=== PATIENT | female | born 1940 | race Caucasian/White ===

== ENCOUNTER 2021-04-16 14:47 | Emergency (ER) | payer MEDICARE, OTHER ==
[2021-04-16 15:07] VITALS: BP 114/72; PULSE 58; RESP 18; TEMP 98.2
[2021-04-16 15:58] LABS: Basophils # (A) 0.1 k/uL (0-0.2); Basophils % (A) 1 %; Eosinophils # (A) 0.2 k/uL (0-0.7); Eosinophils % (A) 3 %; HCT 41.4 % (34.0-46.0); HGB 13.7 gm/dL (11.4-16.0); Lymphocytes # (A) 1.3 k/uL (1.0-4.8); Lymphocytes % (A) 21 %; MCHC 33.2 g/dL (31.0-37.0); MCV 90.6 fL (80.0-100.0); Mean Platelet Volume 7.8; Monocytes # (A) 0.3 k/uL (0-1.0); Monocytes % (A) 5 %; Neutrophils # (A) 4.6 k/uL (1.3-7.7); Neutrophils % (A) 70 %; Platelet Count 345 k/uL (150-450); RBC 4.57 m/uL (3.80-5.40); RDW 13.3 % (11.5-15.5); WBC 6.5 k/uL (3.8-10.6)
[2021-04-16 16:06] LABS: Calcium 9.6 mg/dL (8.4-10.2); Potassium 4.2 mmol/L (3.5-5.1)
[2021-04-16 16:08] LABS: INR 0.9 (<1.2); Partial Thromboplastin Time 22.2 sec (22.0-30.0)
--- NOTE | 2021-04-16 16:13 | CT ---
EXAMINATION TYPE: CT brain bj guillen DATE OF EXAM: 04/16/2021 COMPARISON: NONE HISTORY: Fall injury with chest and neck pain. CT DLP: 1364.3 mGycm. Automated Exposure Control for Dose Reduction was Utilized. TECHNIQUE: CT scan of the head and cervical spine are performed without contrast. FINDINGS: There is no acute intracranial hemorrhage or midline shift identified. Mild to moderate v entricular and sulcal prominence. Moderate low attenuation in the periventricular white matter. The globes are intact and the visualized sinuses are clear. The calvarium is intact. Cervical spine is visualized in its entirety from C1 through upper thoracic levels and demonstrates l evoconvex scoliosis centered upper to mid thoracic spine without evidence of acute fracture or disloc ation. Slight grade 1 retrolisthesis C4 on C5 and C5 on C6. Prevertebral soft tissue appears within n ormal limits. The C1-C2 articulation is within normal limits on the coronal images. Vertebral body h eights are maintained. Sjif-ga-uteknpfo disc space narrowing and spurring at these levels is present. Lung apices show mild to moderate pleural/parenchymal scarring. Dual-lead pacemaker is partially jami ged. Mild calcified plaque left carotid bulb level. IMPRESSION: 1. There is no acute fracture or dislocation evident in the cervical spine. 2. No acute intracranial hemorrhage or midline shift is seen.
--- NOTE | 2021-04-16 16:14 | XR ---
EXAMINATION TYPE: XR chest 1V DATE OF EXAM: 04/16/2021 COMPARISON: NONE HISTORY: Fall injury with chest pain TECHNIQUE: Single frontal view of the chest is obtained. FINDINGS: There is chronic parenchymal change without suspicious focal air space opacity, pleural ef fusion, or pneumothorax seen. The cardiac silhouette size is enlarged with dual lead pacemaker. Non specific thickening of the right paratracheal stripe. Findings could reflect products of goiter. Othe r etiologies not excluded. Correlation with old outside x-ray would be beneficial. The osseous struct ures are intact. IMPRESSION: Cardiomegaly without acute pulmonary process.
--- NOTE | 2021-04-16 16:21 | ED ---
General Adult HPI - General Chief complaint: Fall Stated complaint: Fall Time Seen by Provider: 04/16/21 15:00 Source: patient Mode of arrival: ambulatory Limitations: no limitations - History of Present Illness Initial comments: Dictation was produced using [employer] dictation software. please excuse any grammatical, word or spelling errors. Chief Complaint: 81-year-old female presents after fall. History of Present Illness: Patient is an 81-year-old female she fell. She hurt her right hand and her left knee. Patient also states that she hit her head. She states she fell she lost her balance from a standing position. She was trying to show off to a friend on how she wakes up milk crates and adri of hay. While trying to demonstrate that she fell in front of her friend. Denies any loss of consciousness. Patient takes Plavix. She does not take any other anticoagulation medications. The ROS documented in this emergency department record has been reviewed and confirmed by me. Those systems with pertinent positive or negative responses have been documented in the HPI. All other systems are other negative and/or n oncontributory. PHYSICAL EXAM: General Impression: Alert and oriented x3, not in acute distress HEENT: Small hematoma over the right forehead measuring 2 x 2 centimeters, extra-ocular movements intact, pupils equal and reactive to light bilaterally, mucous membranes moist. Cardiovascular: Heart regular rate and rhythm Chest: Able to complete full sentences, no retractions, no tachypnea Abdomen: abdomen soft, non-tender, non-distended, no organomegaly Musculoskeletal: Pulses present and equal in all extremities, no peripheral edema, ecchymoses to the medial dorsal right hand and medial left knee Motor: no focal deficits noted Neurological: CN II-XII grossly intact, no focal motor or sensory deficits noted Skin: Intact with no visualized rashes Psych: Normal affect and mood ED course: 81-year-old female presents after fall. She lost her balance trying to demonstrate a bodily maneuver to her friend. Vital signs upon arrival are within acceptable limits. Patient's well-appearing at bedside. She has no physical exam findings of significant traumatic injuries. Laboratory evaluation obtained. CBC, coag panel, metabolic panel is unremarkable. Computed tomography scan of the head and C-spine shows no acute processes. Chest x-ray is nonacute for traumatic injuries, pelvis x-rays nonacute for traumatic injuries. Knee x-ray and had a negative. Clinical presentation consistent with head contusion, left knee contusion and right hand contusion.. Patient reverted bedside at [facility]. [facility] stable medical condition. Patient be discharged. EKG interpretation: Ventricular rate 63, sinus rhythm,. Interval 362, QRS 90, QTc 444. No CT prolongation, no QTC prolongation, no ST or T-wave changes noted. Overall, this EKG is unremarkable - Related Data Home Medications Medication Instructions Recorded Confirmed Acetaminophen Tab [Tylenol] 650 mg PO Q6H PRN 04/16/21 04/16/21 Aspirin EC [Ecotrin Low Dose] 81 mg PO DAILY@0700 04/16/21 04/16/21 Atorvastatin Calcium [Lipitor] 40 mg PO DAILY@0700 04/16/21 04/16/21 Clopidogrel [Plavix] 75 mg PO DAILY@0700 04/16/21 04/16/21 Furosemide [Lasix] 20 mg PO DAILY@0700 04/16/21 04/16/21 Isosorbide Mononitrate ER [Imdur] 30 mg PO DAILY@0700 04/16/21 04/16/21 Metoprolol Cruz/Hydrochlorothiaz 1 tab PO BID@0700,1600 04/16/21 04/16/21 [Dutoprol 25-12.5 mg Tablet] Omeprazole [PriLOSEC] 20 mg PO DAILY@0700 04/16/21 04/16/21 Potassium Chloride ER [K-Dur 20] 20 meq PO DAILY@0700 04/16/21 04/16/21 Sertraline HCl [Zoloft] 50 mg PO DAILY@0700 04/16/21 04/16/21 Sucralfate [Carafate] 1 gm PO ACHS 04/16/21 04/16/21 Allergies Allergy/AdvReac Type Severity Reaction Status Date / Time bee venom protein (honey bee) Allergy Rash/Hives Verified 04/16/21 15:57 Penicillins Allergy Rash/Hives Verified 04/16/21 15:57 vitamin b 12 Allergy Anaphylaxis Uncoded 04/16/21 15:09 Review of Systems ROS Statement: Those systems with pertinent positive or pertinent negative responses have been documented in the HPI. ROS Other: All systems not noted in ROS Statement are negative. Past Medical History Past Medical History: Heart Failure, GERD/Reflux, Hyperlipidemia, Hypertension Additional Past Medical History / Comment(s): weakness History of Any Multi-Drug Resistant Organisms: None Reported Past Surgical History: Pacemaker Past Psychological History: Depression Smoking Status: Never smoker Past Alcohol Use History: None Reported Past Drug Use History: None Reported General Exam Limitations: no limitations Course Vital Signs 04/16/21 15:02 Temperature 98.2 F Pulse Rate 58 L Respiratory 18 Rate Blood Pressure 114/72 O2 Sat by Pulse 94 L Oximetry Medical Decision Making - Lab Data Result diagrams: 04/16/21 15:46 04/16/21 15:46 Lab Results 04/16/21 04/16/21 04/16/21 Range/Units 15:46 15:46 15:46 WBC 6.5 (3.8-10.6) k/uL RBC 4.57 (3.80-5.40) m/uL Hgb 13.7 (11.4-16.0) gm/dL Hct 41.4 (34.0-46.0) % MCV 90.6 (80.0-100.0) fL MCH 30.0 (25.0-35.0) pg MCHC 33.2 (31.0-37.0) g/dL RDW 13.3 (11.5-15.5) % Plt Count 345 (150-450) k/uL MPV 7.8 Neutrophils % 70 % Lymphocytes % 21 % Monocytes % 5 % Eosinophils % 3 % Basophils % 1 % Neutrophils # 4.6 (1.3-7.7) k/uL Lymphocytes # 1.3 (1.0-4.8) k/uL Monocytes # 0.3 (0-1.0) k/uL Eosinophils # 0.2 (0-0.7) k/uL Basophils # 0.1 (0-0.2) k/uL PT 10.0 (9.0-12.0) sec INR 0.9 (<1.2) APTT 22.2 (22.0-30.0) sec Sodium (137-145) mmol/L Potassium (3.5-5.1) mmol/L Chloride (98-107) mmol/L Carbon Dioxide (22-30) mmol/L Anion Gap mmol/L BUN (7-17) mg/dL Creatinine (0.52-1.04) mg/dL Est GFR (CKD-EPI)AfAm (>60 ml/min/1.73 sqM) Est GFR (CKD-EPI)NonAf (>60 ml/min/1.73 sqM) Glucose (74-99) mg/dL Calcium (8.4-10.2) mg/dL Blood Type A Positive Blood Type Recheck No Previous Record Bld Type Recheck Status CABO Indicated Antibody Screen NEGATIVE Spec Expiration Date 04/19/2021 - 234504/16/21 Range/Units 15:46 WBC (3.8-10.6) k/uL RBC (3.80-5.40) m/uL Hgb (11.4-16.0) gm/dL Hct (34.0-46.0) % MCV (80.0-100.0) fL MCH (25.0-35.0) pg MCHC (31.0-37.0) g/dL RDW (11.5-15.5) % Plt Count (150-450) k/uL MPV Neutrophils % % Lymphocytes % % Monocytes % % Eosinophils % % Basophils % % Neutrophils # (1.3-7.7) k/uL Lymphocytes # (1.0-4.8) k/uL Monocytes # (0-1.0) k/uL Eosinophils # (0-0.7) k/uL Basophils # (0-0.2) k/uL PT (9.0-12.0) sec INR (<1.2) APTT (22.0-30.0) sec Sodium 139 (137-145) mmol/L Potassium 4.2 (3.5-5.1) mmol/L Chloride 108 H (98-107) mmol/L Carbon Dioxide 23 (22-30) mmol/L Anion Gap 8 mmol/L BUN 22 H (7-17) mg/dL Creatinine 0.83 (0.52-1.04) mg/dL Est GFR (CKD-EPI)AfAm 77 (>60 ml/min/1.73 sqM) Est GFR (CKD-EPI)NonAf 67 (>60 ml/min/1.73 sqM) Glucose 97 (74-99) mg/dL Calcium 9.6 (8.4-10.2) mg/dL Blood Type Blood Type Recheck Bld Type Recheck Status Antibody Screen Spec Expiration Date Disposition Clinical Impression: Fall Disposition: HOME SELF-CARE Condition: Good Instructions (If sedation given, give patient instructions): Fall Prevention for Older Adults (ED) Is patient prescribed a controlled substance at d/c from ED?: No Referrals: Ian Castaneda MD [Primary Care Provider] - 1-2 days
--- NOTE | 2021-04-16 16:37 | XR ---
EXAMINATION TYPE: XR pelvis AP view DATE OF EXAM: 04/16/2021 CLINICAL HISTORY: Fall injury with pain TECHNIQUE: A single AP view of the pelvis is obtained. COMPARISON: None. FINDINGS: Osseous structures are demineralized which is noted to lower radiographic sensitivity. The re is no acute displaced fracture evident in the pelvis. Pubic symphysis is narrowed with sclerosis. [id number]-cl-[id number] superior joint space loss in both hips left greater than right. Postsurgical change of left proximal femur partially imaged. Sacroiliac joints are maintained. The overlying soft tissue appears unremarkable. IMPRESSION: There is no acute fracture or dislocation in the pelvis.
--- NOTE | 2021-04-16 17:09 | XR ---
PROCEDURE: XR knee 4V LT - 3V DATE AND TIME: 04/16/2021 5:05 PM CLINICAL INDICATION: Pain/fall TECHNIQUE: Department protocol COMPARISON: None FINDINGS: There is no fracture or malalignment. The soft tissues are unremarkable. IMPRESSION: NO ACUTE PROCESS.
--- NOTE | 2021-04-16 17:11 | XR ---
PROCEDURE: XR hand complete RT - 3V DATE AND TIME: 04/16/2021 5:05 PM CLINICAL INDICATION: Pain/fall TECHNIQUE: Department protocol COMPARISON: None FINDINGS: There is no fracture or malalignment. Scattered multifocal moderate osteoarthrosis changes noted. The soft tissues are unremarkable. IMPRESSION: NO ACUTE PROCESS.
== END 2021-04-16 18:25 | disposition home or self-care (01) ==
LOC: EC 14:47 → EEVIPCON 14:47 → EC 18:25
DX: S60.221A Contusion of right hand, initial encounter (principal); S80.02XA Contusion of left knee, initial encounter; S00.83XA Contusion of other part of head, initial encounter; I11.0 Hypertensive heart disease with heart failure; I50.9 Heart failure, unspecified; E78.5 Hyperlipidemia, unspecified; K21.9 Gastro-esophageal reflux disease without esophagitis; F32.9 Major depressive disorder, single episode, unspecified; Z79.02 Long term (current) use of antithrombotics/antiplatelets; Z79.82 Long term (current) use of aspirin; Z79.899 Other long term (current) drug therapy; Z88.0 Allergy status to penicillin; Z95.0 Presence of cardiac pacemaker; W01.0XXA Fall on same level from slipping, tripping and stumbling without subsequent striking against object, initial encounter
CPT/HCPCS: 36415; 70450; 71045; 72125; 72170; 80048; 85025; 85610; 85730; 86850; 86900; 86901; 93005; 99285

== ENCOUNTER 2022-08-31 09:22 | Day surgery (SDC) | payer MEDICARE, OTHER ==
[2022-08-26 12:23] VITALS: BMI 31.8
[~2022-08-31 09:22] MED LIST: LACTATED RINGERS 1,000 ML IV SCH
[2022-08-31 10:01] VITALS: RESP 16; TEMP 97.3
[2022-08-31] MEDS ORDERED: PROPOFOL 10 MG/ML 20 ML VIAL IV ONE (10:09)
[2022-08-31] MEDS ORDERED: LIDOCAINE 2% INJ 20 MG/ML (2 ML VIAL) ONE (10:09)
[2022-08-31] MEDS ORDERED: IV FLUID CONTINUATION 700 ML IV ONE (10:18)
--- NOTE | 2022-08-31 10:19 | P.PCN ---
Date of Procedure: 08/31/22 Procedure(s) Performed: BRIEF HISTORY: Patient is a 82-year-old, pleasant, white female scheduled for an upper endoscopy as a part of evaluation of long-standing history of GERD and intermittent episodes of nausea vomiting has been progressively getting worse for the last few weeks duration. She has been on omeprazole 20 mg daily the past with no help. He was recently changed to Prevacid 30 mg daily and she is been doing much better. She is scheduled for an upper endoscopy to rule out complicated reflux disease.. PROCEDURE PERFORMED: Esophagogastroduodenoscopy with biopsy. PREOPERATIVE DIAGNOSIS: History of GERD with intermittent nausea vomiting. IV sedation per anesthesia. PROCEDURE: After informed consent was obtained, the patient was brought into the endoscopy unit. IV sedation was administered by Anesthesia under continuous monitoring. Initially the Olympus GIF-140 video endoscope was inserted into the mouth. Esophagus intubated without any difficulty. It was gradually advanced into the stomach and duodenum and carefully examined. The bulb and the second part of the duodenum appeared normal. The scope at this time was withdrawn to the stomach, adequately insufflated with air, and upon careful examination, mucosa of the antrum, had mild gastritis and biopsies were done from this area. Mucosa body, cardia and the fundus appeared normal. The scope was then withdrawn into the esophagus. The GE junction was located at 32 cm from the incisors. Large hiatal hernia noted. The esophagus appeared normal. There were no erosions or ulcerations seen and the patient tolerated the procedure well. IMPRESSION: 1. Large hiatal hernia. 2. No evidence of esophagitis or Mitchell's esophagus 3. Mild antral gastritis. RECOMMENDATIONS: The findings of this examination were discussed with the patient as well his family. She was advised to continue with Prevacid 30 mg daily and follow antireflux measures. Recommend small frequent meals and she will follow up in office in 4-6 weeks..
[2022-08-31 10:20] VITALS: PULSE 60
[2022-08-31 10:35] VITALS: BP 110/65
== END 2022-08-31 11:02 | disposition home or self-care (01) ==
LOC: ORWHC2ENDO 09:22 → EEVIPCON 10:15 → ORWHC2ENDO 11:02
PROVIDERS: ATTEND Internal Medicine Gastroenterology
DX: K29.50 Unspecified chronic gastritis without bleeding (principal); K21.9 Gastro-esophageal reflux disease without esophagitis; K44.9 Diaphragmatic hernia without obstruction or gangrene; I10 Essential (primary) hypertension; E78.5 Hyperlipidemia, unspecified; F32.A Depression, unspecified; Z79.899 Other long term (current) drug therapy; Z88.0 Allergy status to penicillin
CPT/HCPCS: 88305; 43239; J2704; J2001

== ENCOUNTER 2023-01-08 14:33 | Emergency (ER) | payer MEDICARE, OTHER ==
--- NOTE | 2023-01-08 15:20 | ED ---
General Adult HPI - General Chief complaint: Fall Stated complaint: Fall Time Seen by Provider: 01/08/23 14:39 Source: patient, EMS, RN notes reviewed Mode of arrival: ambulatory Limitations: no limitations - History of Present Illness Initial comments: 82-year-old female presents to the emergency department with chief complaint of fall out of bed last night. She was evaluated by a physician at [facility] who wanted her to come in to be evaluated. Patient is feeling well. Denies headache, loss of consciousness. She reports that she is on Plavix but no other blood thinners. - Related Data Home Medications Medication Instructions Recorded Confirmed Acetaminophen Tab [Tylenol] 650 mg PO Q6H PRN 04/16/21 08/26/22 Aspirin EC [Ecotrin Low Dose] 81 mg PO DAILY 04/16/21 08/30/22 Atorvastatin Calcium [Lipitor] 40 mg PO DAILY 04/16/21 08/26/22 Clopidogrel [Plavix] 75 mg PO DAILY 04/16/21 08/30/22 Furosemide [Lasix] 20 mg PO DAILY 04/16/21 08/26/22 Isosorbide Mononitrate ER [Imdur] 30 mg PO DAILY 04/16/21 08/26/22 Potassium Chloride ER [K-Dur 20] 20 meq PO DAILY 04/16/21 08/26/22 Sertraline HCl [Zoloft] 50 mg PO DAILY 04/16/21 08/26/22 Acetaminophen [Tylenol 8 Hour] 650 mg PO TID 08/26/22 08/26/22 Lansoprazole [Prevacid 24Hr] 15 mg PO DAILY 08/26/22 08/26/22 Metoprolol Tartrate [Lopressor] 12.5 mg PO BID 08/26/22 08/26/22 hydroCHLOROthiazide 12.5 mg PO DAILY 08/26/22 08/26/22 Allergies Allergy/AdvReac Type Severity Reaction Status Date / Time bee venom protein (honey bee) Allergy Rash/Hives Verified 01/08/23 14:46 Penicillins Allergy Rash/Hives Verified 01/08/23 14:46 vitamin b 12 Allergy Anaphylaxis Uncoded 01/08/23 14:46 Review of Systems ROS Statement: Those systems with pertinent positive or pertinent negative responses have been documented in the HPI. ROS Other: All systems not noted in ROS Statement are negative. Past Medical History Past Medical History: Heart Failure, CVA/TIA, GERD/Reflux, Hyperlipidemia, Hypertension Additional Past Medical History / Comment(s): weakness History of Any Multi-Drug Resistant Organisms: None Reported Past Surgical History: Pacemaker Past Anesthesia/Blood Transfusion Reactions: No Reported Reaction Additional Past Anesthesia/Blood Transfusion Reaction / Comment(s): PER [facility] STAFF Type of Cardiac Device: Unknown Device Placement Date:: UNK Past Psychological History: Depression Smoking Status: Former smoker Past Alcohol Use History: Rare Past Drug Use History: None Reported General Exam Limitations: no limitations General appearance: alert, in no apparent distress Head exam: Present: atraumatic, normocephalic, normal inspection Eye exam: Present: PERRL, EOMI, other. Absent: scleral icterus, conjunctival injection, periorbital swelling ENT exam: Present: normal exam, mucous membranes moist Neck exam: Present: normal inspection. Absent: tenderness, meningismus, lymphadenopathy Respiratory exam: Present: normal lung sounds bilaterally. Absent: respiratory distress, wheezes, rales, rhonchi, stridor Cardiovascular Exam: Present: regular rate, normal rhythm, normal heart sounds. Absent: systolic murmur, diastolic murmur, rubs, gallop, clicks GI/Abdominal exam: Present: soft, normal bowel sounds. Absent: distended, tenderness, guarding, rebound, rigid Extremities exam: Present: normal inspection, full ROM, normal capillary refill. Absent: tenderness, pedal edema, joint swelling, calf tenderness Back exam: Present: normal inspection Neurological exam: Present: alert, oriented X3, CN II-XII intact Psychiatric exam: Present: normal affect, normal mood Skin exam: Present: warm, dry, intact, normal color. Absent: rash Course Vital Signs 01/08/23 01/08/23 01/08/23 14:39 15:00 15:30 Temperature 97.9 F Pulse Rate 66 68 Respiratory 20 Rate Blood Pressure 99/66 99/66 108/60 O2 Sat by Pulse 95 95 94 L Oximetry 01/08/23 01/08/23 01/08/23 16:00 16:30 20:32 Temperature 98.7 F Pulse Rate 70 67 68 Respiratory 18 18 Rate Blood Pressure 109/66 103/60 105/68 O2 Sat by Pulse 92 L 91 L 96 Oximetry Medical Decision Making - Medical Decision Making Was pt. sent in by a medical professional or institution (Dr., PA, FOOD EQUIPMENT SERVICE TECHNICIAN, urgent care, hospital, or shelter...) When possible be specific @ -patient sent in by [facility] physician Did you speak to anyone other than the patient for history (EMS, parent, family, police, friend...)? What history was obtained from this source @ -No Did you review nursing and triage notes (agree or disagree)? Why? @ -I reviewed and agree with nursing and triage notes Were old charts reviewed (outside hosp., previous admission, EMS record, old EKG, old radiological studies, urgent care reports/EKG's, shelter records)? Report findings @ -No old charts were reviewed Differential Diagnosis (chest pain, altered mental status, abdominal pain women, abdominal pain men, vaginal bleeding, weakness, fever, dyspnea, syncope, headache, dizziness, GI bleed, back pain, seizure, CVA, palpatations, mental health, musculoskeletal)? @ -Differential Musculoskeletal Muscular strain, contusion, ligament sprain, fracture, arthritis, septic arthritis, bursitis, cellulitis, muscle spasm, nerve compression, DVT, arterial occlusion, herpes zoster, electrolyte abnormality, tumor.... This is not meant to be in all inclusive list EKG interpreted by me (3pts min.). @ -none X-rays interpreted by me (1pt min.). @ -None done CT interpreted by me (1pt min.). @ -CT brain and C-spine shows no evidence of acute intracranial hemorrhage or C-spine fracture U/S interpreted by me (1pt. min.). @ -None done What testing was considered but not performed or refused? (CT, X-rays, U/S, labs)? Why? @ -None What meds were considered but not given or refused? Why? @ -None Did you discuss the management of the patient with other professionals (professionals i.e. EDWAR Dodson, FOOD EQUIPMENT SERVICE TECHNICIAN, lab, RT, psych nurse, social secretary, director of district office, teacher, home school liaison officer, patient case coordinator)? Give summary @ -No Was smoking cessation discussed for >3mins.? @ -No Was critical care preformed (if so, how long)? @ -No Were there social determinants of health that impacted care today? How? (Homelessness, low income, unemployed, alcoholism, drug addiction, transportation, low edu. Level, literacy, decrease access to med. care, [facility], rehab)? @ -No Was there de-escalation of care discussed even if they declined (Discuss DNR or withdrawal of care, Hospice)? DNR status @ -No What co-morbidities impacted this encounter? (DM, HTN, Smoking, COPD, CAD, Cancer, CVA, ARF, Chemo, Hep., AIDS, mental health diagnosis, sleep apnea, morbid obesity)? @ -None Was patient admitted / discharged? Hospital course, mention meds given and route, prescriptions, significant lab abnormalities, going to OR and other pertinent info. @ -Discharged. Patient presented to emergency department chief complaint of fall in which she hit her head on the ground. She was sent in by her [facility] physician. CT brain shows no evidence of acute intracranial hemorrhage. Patient is mentating at her baseline, denies headache, vomiting. Patient stable for [facility]. Case discussed with my attending, Dr. Orozco Undiagnosed new problem with uncertain prognosis? @ -No Drug Therapy requiring intensive monitoring for toxicity (Heparin, Nitro, Ins ulin, Cardizem)? @ -No Were any procedures done? @ -No Diagnosis/symptom? @ -fall Acute, or Chronic, or Acute on Chronic? @ -acute Uncomplicated (without systemic symptoms) or Complicated (systemic symptoms)? @ -uncomplicated Side effects of treatment? @ -No Exacerbation, Progression, or Severe Exacerbation? @ -No Poses a threat to life or bodily function? How? (Chest pain, USA, NH, pneumonia, PE, COPD, DKA, ARF, appy, cholecystitis, CVA, Diverticulitis, Homicidal, Suicidal, threat to staff... and all critical care pts) @ -No Disposition Clinical Impression: Fall Disposition: HOME SELF-CARE Condition: Stable Instructions (If sedation given, give patient instructions): Fall Prevention for Older Adults (ED) Additional Instructions: Please return to the emergency department for new or worsening symptoms. Is patient prescribed a controlled substance at d/c from ED?: No Referrals: Karin Marin DO [REFERRING] - 1-2 days Time of Disposition: 16:43
--- NOTE | 2023-01-08 16:15 | CT ---
EXAMINATION TYPE: CT brain bj chavarria con DATE OF EXAM: 01/08/2023 COMPARISON: None HISTORY: pain after fall CT DLP: 1412.8 mGycm, Automated exposure control for dose reduction was used. CONTRAST: Patient injected with 0 mL of Isovue 300. CT of the brain is performed utilizing 3 mm thick sections through the posterior fossa and 3 mm thick sections through the remaining calvarium. Study is performed within 24 hours of arrival to the hospital. No abnormal hyperdensity is present to suggest an acute intracranial hemorrhage. No mass lesion is evident. No acute infarcts are evident. Chronic appearing periventricular white matter ischemic type changes are present, unchanged from comparison. Ventricles and sulci are appropriate for the patient age. Paranasal sinuses and mastoid air cells within the [id number] are clear. IMPRESSIONS: 1. Atrophy with chronic appearing periventricular white matter ischemic type changes. CT cervical spine. COMPARISON: None CT of the cervical spine is performed in the axial plane at 2 mm thick sections. Reconstructed image s in the coronal, and sagittal plane are reviewed on the computer. No acute fractures are evident. Vertebral body alignment is normal. Disc space narrowing is present C4-5 C5-C6 C6-7. Prevertebral space appears normal. Vertebral body heights are preserved. No spinal canal stenosis is evident. Uncovertebral joint hypertrophy has severe bilateral foraminal stenosis C4-5. Severe left foraminal s tenosis from uncovertebral joint hypertrophy is present C5-6. Note is made of some thickening in the lung apices within the [id number]. IMPRESSIONS: 1. Degenerative disc change and foraminal stenosis mid cervical spine discussed above. 2. No acute osseous abnormality cervical spine.
[2023-01-08 16:36] VITALS: RESP 18
[2023-01-08 20:34] VITALS: BP 105/68; PULSE 68; TEMP 98.7
== END 2023-01-08 20:32 | disposition home or self-care (01) ==
LOC: EC 14:33
DX: S09.90XA Unspecified injury of head, initial encounter (principal); I11.0 Hypertensive heart disease with heart failure; I50.9 Heart failure, unspecified; E78.5 Hyperlipidemia, unspecified; F32.A Depression, unspecified; Z79.82 Long term (current) use of aspirin; Z79.02 Long term (current) use of antithrombotics/antiplatelets; Z79.899 Other long term (current) drug therapy; Z88.8 Allergy status to other drugs, medicaments and biological substances; Z91.030 Bee allergy status; Z88.0 Allergy status to penicillin; Z87.891 Personal history of nicotine dependence; Z86.73 Personal history of transient ischemic attack (TIA), and cerebral infarction without residual deficits; W06.XXXA Fall from bed, initial encounter
CPT/HCPCS: 70450; 72125; 99284

== ENCOUNTER 2023-04-22 22:49 | Inpatient (IN) | payer MEDICARE, OTHER ==
[2023-04-22 23:42] LABS: Basophils % (A) 0 %; Eosinophils # (A) 0.5 k/uL (0-0.7); Eosinophils % (A) 7 %; Hypochromasia Marked; Lymphocytes # (A) 1.4 k/uL (1.0-4.8); Lymphocytes % (A) 20 %; MCH 18.7 pg (25.0-35.0); MCHC 28.3 g/dL (31.0-37.0); MCV 66.2 fL (80.0-100.0); Mean Platelet Volume 6.8; Microcytosis Marked; Monocytes # (A) 0.4 k/uL (0-1.0); Monocytes % (A) 5 %; Neutrophils # (A) 4.7 k/uL (1.3-7.7); Neutrophils % (A) 66 %; Platelet Count 526 k/uL (150-450); Poikilocytosis Slight; RBC 2.94 m/uL (3.80-5.40); RDW 15.8 % (11.5-15.5); WBC 7.2 k/uL (3.8-10.6)
[2023-04-22 23:47] LABS: HCT 19.5 % (34.0-46.0); HGB 5.5 gm/dL (11.4-16.0)
[2023-04-22 23:54] LABS: Prothrombin Time 10.5 sec (10.0-12.5)
[2023-04-22 23:56] LABS: Partial Thromboplastin Time 19.3 sec (22.0-30.0)
[2023-04-23 00:01] LABS: ALT 12 U/L (4-34); AST 16 U/L (14-36); African American GFR (CKD) >90 (>60 ml/min/1.73 sqM); Albumin 3.5 g/dL (3.5-5.0); Alkaline Phosphatase 109 U/L (38-126); Anion Gap 11 mmol/L; Blood Urea Nitrogen 13 mg/dL (7-17); Calcium 8.8 mg/dL (8.4-10.2); Carbon Dioxide 25 mmol/L (22-30); Chloride 103 mmol/L (98-107); Glucose 130 mg/dL (74-99); Magnesium 1.7 mg/dL (1.6-2.3); Non-African American GFR(CKD) 79 (>60 ml/min/1.73 sqM); Potassium 3.8 mmol/L (3.5-5.1); Sodium 139 mmol/L (137-145); Total Bilirubin 0.3 mg/dL (0.2-1.3); Total Protein 6.5 g/dL (6.3-8.2)
[2023-04-23] MEDS ORDERED: NALOXONE 0.4 MG/ML 1 ML VIAL IV PRN (00:51)
--- NOTE | 2023-04-23 00:51 | ED ---
General Adult HPI - General Chief complaint: Recheck/Abnormal Lab/Rx Stated complaint: Low Hemoglobin Time Seen by Provider: 04/22/23 22:55 Source: EMS Mode of arrival: EMS - History of Present Illness Initial comments: 83 year old female presents from [facility] for low hemoglobin. Patient reports that she had routine laboratory studies conducted found to have a low he moglobin. It was reportedly 4.8. She was complaining of some lightheadedness. She denies history of anemia but does admit that she had previous blood transfusion in the very remote past. She denies any recent blood loss. States that she will intermittently have some dark stools however nothing recently. She does not take an iron supplementation. She denies any abdominal pain. Patient takes Plavix. No other alleviating, precipitating or modifying factors - Related Data Home Medications Medication Instructions Recorded Confirmed Acetaminophen Tab [Tylenol] 650 mg PO Q6H PRN 04/16/21 08/26/22 Aspirin EC [Ecotrin Low Dose] 81 mg PO DAILY 04/16/21 08/30/22 Atorvastatin Calcium [Lipitor] 40 mg PO DAILY 04/16/21 08/26/22 Clopidogrel [Plavix] 75 mg PO DAILY 04/16/21 08/30/22 Furosemide [Lasix] 20 mg PO DAILY 04/16/21 08/26/22 Isosorbide Mononitrate ER [Imdur] 30 mg PO DAILY 04/16/21 08/26/22 Potassium Chloride ER [K-Dur 20] 20 meq PO DAILY 04/16/21 08/26/22 Sertraline HCl [Zoloft] 50 mg PO DAILY 04/16/21 08/26/22 Acetaminophen [Tylenol 8 Hour] 650 mg PO TID 08/26/22 08/26/22 Lansoprazole [Prevacid 24Hr] 15 mg PO DAILY 08/26/22 08/26/22 Metoprolol Tartrate [Lopressor] 12.5 mg PO BID 08/26/22 08/26/22 hydroCHLOROthiazide 12.5 mg PO DAILY 08/26/22 08/26/22 Allergies Allergy/AdvReac Type Severity Reaction Status Date / Time bee venom protein (honey bee) Allergy Rash/Hives Verified 04/22/23 22:57 Penicillins Allergy Rash/Hives Verified 04/22/23 22:57 vitamin b 12 Allergy Anaphylaxis Uncoded 04/22/23 22:57 Review of Systems ROS Statement: Those systems with pertinent positive or pertinent negative responses have been documented in the HPI. ROS Other: All systems not noted in ROS Statement are negative. Past Medical History Past Medical History: Heart Failure, CVA/TIA, GERD/Reflux, Hyperlipidemia, Hypertension Additional Past Medical History / Comment(s): weakness History of Any Multi-Drug Resistant Organisms: None Reported Past Surgical History: Pacemaker Past Anesthesia/Blood Transfusion Reactions: No Reported Reaction Additional Past Anesthesia/Blood Transfusion Reaction / Comment(s): PER [facility] STAFF Type of Cardiac Device: Unknown Device Placement Date:: UNK Past Psychological History: Depression Smoking Status: Former smoker Past Alcohol Use History: Rare Past Drug Use History: None Reported General Exam General appearance: alert, in no apparent distress Head exam: Present: atraumatic, normocephalic, normal inspection Eye exam: Present: normal appearance, PERRL, EOMI. Absent: scleral icterus, conjunctival injection, periorbital swelling ENT exam: Present: normal exam, mucous membranes moist Neck exam: Present: normal inspection. Absent: tenderness, meningismus, lymphadenopathy Respiratory exam: Present: normal lung sounds bilaterally. Absent: respiratory distress, wheezes, rales, rhonchi, stridor Cardiovascular Exam: Present: regular rate, normal rhythm, normal heart sounds. Absent: systolic murmur, diastolic murmur, rubs, gallop, clicks GI/Abdominal exam: Present: soft, normal bowel sounds. Absent: distended, tenderness, guarding, rebound, rigid Rectal exam: Present: normal rectal tone, heme (-) stool. Absent: black stool, bloody stool Extremities exam: Present: normal inspection, full ROM, normal capillary refill. Absent: tenderness, pedal edema, joint swelling, calf tenderness Back exam: Present: normal inspection Neurological exam: Present: alert, oriented X3, CN II-XII intact Psychiatric exam: Present: normal affect, normal mood Skin exam: Present: warm, dry, intact, normal color. Absent: rash Course Vital Signs 04/22/23 04/23/23 04/23/23 22:51 00:00 02:00 Temperature 100.2 F H 98.7 F 98.5 F Pulse Rate 68 63 66 Respiratory 18 16 18 Rate Blood Pressure 119/72 118/51 133/57 O2 Sat by Pulse 98 95 96 Oximetry 04/23/23 04/23/23 04/23/23 02:25 02:45 03:00 Temperature 98.5 F 98.3 F Pulse Rate 66 66 66 Respiratory 18 18 18 Rate Blood Pressure 133/50 133/51 135/63 O2 Sat by Pulse 95 95 96 Oximetry 04/23/23 05:43 Temperature 98.3 F Pulse Rate 63 Respiratory 18 Rate Blood Pressure 121/58 O2 Sat by Pulse 95 Oximetry Medical Decision Making - Medical Decision Making Was pt. sent in by a medical professional or institution (, [facility], EVS MANAGER, urgent care, hospital, or group home...) When possible be specific @ -Patient was sent from [facility] Did you speak to anyone other than the patient for history (EMS, parent, family, police, friend...)? What history was obtained from this source @ -EMS Did you review nursing and triage notes (agree or disagree)? Why? @ -I reviewed and agree with nursing and triage notes Were old charts reviewed (outside hosp., previous admission, EMS record, old EKG, old radiological studies, urgent care reports/EKG's, group home records)? Report findings @ -No old charts were reviewed Differential Diagnosis (chest pain, altered mental status, abdominal pain women, abdominal pain men, vaginal bleeding, weakness, fever, dyspnea, syncope, headache, dizziness, GI bleed, back pain, seizure, CVA, palpatations, mental health, musculoskeletal)? @ -Iron deficiency anemia, acute blood loss anemia, B12 and folate deficiency EKG interpreted by me (3pts min.). @ -Not done X-rays interpreted by me (1pt min.). @ -None done CT interpreted by me (1pt min.). @ -None done U/S interpreted by me (1pt. min.). @ -None done What testing was considered but not performed or refused? (CT, X-rays, U/S, labs)? Why? @ -None What meds were considered but not given or refused? Why? @ -None Did you discuss the management of the patient with other professionals (professionals i.e. EDWAR Dodson, EVS MANAGER, lab, RT, psych nurse, social science research assistant, editor school photograph, teacher, preventive medicine officer, sample case porter)? Give summary @ -Spoke with Dr. sheet for admission Was smoking cessation discussed for >3mins.? @ -No Was critical care preformed (if so, how long)? @ -35 minutes for blood transfusion Were there social determinants of health that impacted care today? How? (Homelessness, low income, unemployed, alcoholism, drug addiction, transportation, low edu. Level, literacy, decrease access to med. care, alf, rehab)? @ -No Was there de-escalation of care discussed even if they declined (Discuss DNR or withdrawal of care, Hospice)? DNR status @ -No What co-morbidities impacted this encounter? (DM, HTN, Smoking, COPD, CAD, Cancer, CVA, ARF, Chemo, Hep., AIDS, mental health diagnosis, sleep apnea, morbid obesity)? @ -CVA on Plavix Was patient admitted / discharged? Hospital course, mention meds given and route, prescriptions, significant lab abnormalities, going to OR and other pertinent info. @ -Admitted. Upon arrival patient was placed into room 7. History and physical exam was performed. We did repeat the patient's blood work. She continues to have a significantly low hemoglobin level. I did order 2 units of blood. Occult is performed and is negative. I recommended admission for further anemia workup. Patient was agreeable to this. Spoke with Dr. Richardson who agreed to admit the patient Undiagnosed new problem with uncertain prognosis? @ -Yes Drug Therapy requiring intensive monitoring for toxicity (Heparin, Nitro, Insulin, Cardizem)? @ -Blood products Were any procedures done? @ -No Diagnosis/symptom? @ -Acute microcytic anemia Acute, or Chronic, or Acute on Chronic? @ -Acute Uncomplicated (without systemic symptoms) or Complicated (systemic symptoms)? @ -Complicated Side effects of treatment? @ -Transfusion reaction Exacerbation, Progression, or Severe Exacerbation? @ -No Poses a threat to life or bodily function? How? (Chest pain, USA, DE, pneumonia, PE, COPD, DKA, ARF, appy, cholecystitis, CVA, Diverticulitis, Homicidal, Suicidal, threat to staff... and all critical care pts) @ -Yes, patient has significant anemia - Lab Data Result diagrams: 04/22/23 23:15 04/22/23 23:15 Lab Results 04/22/23 04/22/23 04/22/23 Range/Units 23:15 23:15 23:15 WBC 7.2 (3.8-10.6) k/uL RBC 2.94 L (3.80-5.40) m/uL Hgb 5.5 L* (11.4-16.0) gm/dL Hct 19.5 L* (34.0-46.0) % MCV 66.2 L (80.0-100.0) fL MCH 18.7 L (25.0-35.0) pg MCHC 28.3 L (31.0-37.0) g/dL RDW 15.8 H (11.5-15.5) % Plt Count 526 H (150-450) k/uL MPV 6.8 Neutrophils % 66 % Lymphocytes % 20 % Monocytes % 5 % Eosinophils % 7 % Basophils % 0 % Neutrophils # 4.7 (1.3-7.7) k/uL Lymphocytes # 1.4 (1.0-4.8) k/uL Monocytes # 0.4 (0-1.0) k/uL Eosinophils # 0.5 (0-0.7) k/uL Basophils # 0.0 (0-0.2) k/uL Hypochromasia Marked Poikilocytosis Slight Microcytosis Marked PT 10.5 (10.0-12.5) sec INR 1.0 (<1.2) APTT 19.3 L (22.0-30.0) sec Sodium (137-145) mmol/L Potassium (3.5-5.1) mmol/L Chloride (98-107) mmol/L Carbon Dioxide (22-30) mmol/L Anion Gap mmol/L BUN (7-17) mg/dL Creatinine (0.52-1.04) mg/dL Est GFR (CKD-EPI)AfAm (>60 ml/min/1.73 sqM) Est GFR (CKD-EPI)NonAf (>60 ml/min/1.73 sqM) Glucose (74-99) mg/dL Plasma Lactic Acid Gideon (0.7-2.0) mmol/L Calcium (8.4-10.2) mg/dL Magnesium (1.6-2.3) mg/dL Total Bilirubin (0.2-1.3) mg/dL AST (14-36) U/L ALT (4-34) U/L Alkaline Phosphatase (38-126) U/L Troponin I (0.000-0.034) ng/mL Total Protein (6.3-8.2) g/dL Albumin (3.5-5.0) g/dL Stool Occult Blood Negative (Negative) Blood Type Blood Type Recheck Bld Type Recheck Status Antibody Screen Crossmatch Spec Expiration Date 04/22/23 04/22/23 04/22/23 Range/Units 23:15 23:15 23:15 WBC (3.8-10.6) k/uL RBC (3.80-5.40) m/uL Hgb (11.4-16.0) gm/dL Hct (34.0-46.0) % MCV (80.0-100.0) fL MCH (25.0-35.0) pg MCHC (31.0-37.0) g/dL RDW (11.5-15.5) % Plt Count (150-450) k/uL MPV Neutrophils % % Lymphocytes % % Monocytes % % Eosinophils % % Basophils % % Neutrophils # (1.3-7.7) k/uL Lymphocytes # (1.0-4.8) k/uL Monocytes # (0-1.0) k/uL Eosinophils # (0-0.7) k/uL Basophils # (0-0.2) k/uL Hypochromasia Poikilocytosis Microcytosis PT (10.0-12.5) sec INR (<1.2) APTT (22.0-30.0) sec Sodium 139 (137-145) mmol/L Potassium 3.8 (3.5-5.1) mmol/L Chloride 103 (98-107) mmol/L Carbon Dioxide 25 (22-30) mmol/L Anion Gap 11 mmol/L BUN 13 (7-17) mg/dL Creatinine 0.71 (0.52-1.04) mg/dL Est GFR (CKD-EPI)AfAm >90 (>60 ml/min/1.73 sqM) Est GFR (CKD-EPI)NonAf 79 (>60 ml/min/1.73 sqM) Glucose 130 H (74-99) mg/dL Plasma Lactic Acid Gideon 3.0 H* (0.7-2.0) mmol/L Calcium 8.8 (8.4-10.2) mg/dL Magnesium 1.7 (1.6-2.3) mg/dL Total Bilirubin 0.3 (0.2-1.3) mg/dL AST 16 (14-36) U/L ALT 12 (4-34) U/L Alkaline Phosphatase 109 (38-126) U/L Troponin I <0.012 (0.000-0.034) ng/mL Total Protein 6.5 (6.3-8.2) g/dL Albumin 3.5 (3.5-5.0) g/dL Stool Occult Blood (Negative) Blood Type Blood Type Recheck Bld Type Recheck Status Antibody Screen Crossmatch Spec Expiration Date 04/22/23 Range/Units 23:15 WBC (3.8-10.6) k/uL RBC (3.80-5.40) m/uL Hgb (11.4-16.0) gm/dL Hct (34.0-46.0) % MCV (80.0-100.0) fL MCH (25.0-35.0) pg MCHC (31.0-37.0) g/dL RDW (11.5-15.5) % Plt Count (150-450) k/uL MPV Neutrophils % % Lymphocytes % % Monocytes % % Eosinophils % % Basophils % % Neutrophils # (1.3-7.7) k/uL Lymphocytes # (1.0-4.8) k/uL Monocytes # (0-1.0) k/uL Eosinophils # (0-0.7) k/uL Basophils # (0-0.2) k/uL Hypochromasia Poikilocytosis Microcytosis PT (10.0-12.5) sec INR (<1.2) APTT (22.0-30.0) sec Sodium (137-145) mmol/L Potassium (3.5-5.1) mmol/L Chloride (98-107) mmol/L Carbon Dioxide (22-30) mmol/L Anion Gap mmol/L BUN (7-17) mg/dL Creatinine (0.52-1.04) mg/dL Est GFR (CKD-EPI)AfAm (>60 ml/min/1.73 sqM) Est GFR (CKD-EPI)NonAf (>60 ml/min/1.73 sqM) Glucose (74-99) mg/dL Plasma Lactic Acid Gideon (0.7-2.0) mmol/L Calcium (8.4-10.2) mg/dL Magnesium (1.6-2.3) mg/dL Total Bilirubin (0.2-1.3) mg/dL AST (14-36) U/L ALT (4-34) U/L Alkaline Phosphatase (38-126) U/L Troponin I (0.000-0.034) ng/mL Total Protein (6.3-8.2) g/dL Albumin (3.5-5.0) g/dL Stool Occult Blood (Negative) Blood Type A Positive Blood Type Recheck A Pos Bld Type Recheck Status No Antibody Screen NEGATIVE Crossmatch See Detail Spec Expiration Date 04/25/20232314 Disposition Clinical Impression: Microcytic anemia Disposition: ADMITTED IP TO THIS [facility] Condition: Stable Is patient prescribed a controlled substance at d/c from ED?: No Time of Disposition: 00:51 Decision to Admit Reason: Admit from EC Decision Date: 04/23/23 Decision Time: 00:51
[2023-04-23 08:24] LABS: Anisocytosis Slight; Basophils % (A) 0 %; Eosinophils # (A) 0.5 k/uL (0-0.7); Eosinophils % (A) 6 %; Hypochromasia Marked; Lymphocytes # (A) 1.7 k/uL (1.0-4.8); Lymphocytes % (A) 20 %; MCHC 29.6 g/dL (31.0-37.0); MCV 71.1 fL (80.0-100.0); Mean Platelet Volume 7.3; Microcytosis Moderate; Monocytes # (A) 0.5 k/uL (0-1.0); Monocytes % (A) 6 %; Neutrophils # (A) 5.7 k/uL (1.3-7.7); Neutrophils % (A) 66 %; Platelet Count 482 k/uL (150-450); Poikilocytosis Marked; RBC 3.65 m/uL (3.80-5.40); RDW 17.2 % (11.5-15.5); WBC 8.5 k/uL (3.8-10.6)
[2023-04-23 08:26] LABS: HGB 7.7 gm/dL (11.4-16.0)
[2023-04-23 09:31] LABS: % Iron Saturation 2.14 (12.00-45.00); Ferritin 4.6 ng/mL (10.0-291.0); Iron 9 UG/DL (50-170); Total Iron Binding Capacity 420 UG/DL (228-460)
--- NOTE | 2023-04-23 10:34 | P.HPIM ---
History of Present Illness This is a pleasant 83 years old female with multiple medical problems include Heart Failure, CVA/TIA, GERD/Reflux, Hyperlipidemia, Hypertension Patient lives as an [facility] resident at [facility] , patient states to me that at baseline she does not walk. 2 days ago she started having vomiting, she vomited her breakfast and dinner, she denies fresh blood in her vomitus but she says it looks like dark coffee. Also patient complaining of mild epigastric pain and tenderness. She denies using extra pain medication over the last week. She denies dizziness, no weakness or headache. No chest pain or dyspnea. No specific urinary complaints. No smoking or Acute alcohol or illicit drugs. Currently patient getting another unit of blood transfusion Patient is hemodynamically stable. Labs reviewed showing no leukocytosis, hemoglobin on admission was 5.5, after blood transfusion went up to 7.7 Platelet is elevated for 82. Rest of BMP and liver enzymes were unremarkable Lactic acid elevated at 3.3 and came down to 2.6. Occult blood in the stool is negative. EGD on 08/31/22 showing large hiatal hernia with no evidence of esophagitis or Mitchell's esophagus, mild antral gastritis Review of Systems Review of systems CONSTITUTIONAL: No fever, no malaise, no fatigue. HEENT: No recent visual problems or hearing problems. Denied any sore throat. CARDIOVASCULAR: No orthopnea, PND, no palpitations, no syncope. PULMONARY: No shortness of breath, no cough, no hemoptysis. GASTROINTESTINAL: No diarrhea, no nausea, no vomiting, n. Normoactive bowel sounds. NEUROLOGICAL: No headaches, no weakness, no numbness. HEMATOLOGICAL: Denies any bleeding or petechiae. GENITOURINARY: Denies any burning micturition, frequency, or urgency. MUSCULOSKELETAL/RHEUMATOLOGICAL: Denies any joint pain, swelling, or any muscle pain. ENDOCRINE: Denies any polyuria or polydipsia. Past Medical History Past Medical History: Heart Failure, CVA/TIA, GERD/Reflux, Hyperlipidemia, Hypertension Additional Past Medical History / Comment(s): weakness History of Any Multi-Drug Resistant Organisms: None Reported Past Surgical History: Pacemaker Past Anesthesia/Blood Transfusion Reactions: No Reported Reaction Additional Past Anesthesia/Blood Transfusion Reaction / Comment(s): PER [facility] STAFF Type of Cardiac Device: Unknown Device Placement Date:: UNK Past Psychological History: Depression Smoking Status: Former smoker Past Alcohol Use History: Rare Past Drug Use History: None Reported Medications and Allergies Home Medications Medication Instructions Recorded Confirmed Type Acetaminophen Tab [Tylenol] 650 mg PO Q6H PRN 04/16/21 08/26/22 History Aspirin EC [Ecotrin Low Dose] 81 mg PO DAILY 04/16/21 08/30/22 History Atorvastatin Calcium [Lipitor] 40 mg PO DAILY 04/16/21 08/26/22 History Clopidogrel [Plavix] 75 mg PO DAILY 04/16/21 08/30/22 History Furosemide [Lasix] 20 mg PO DAILY 04/16/21 08/26/22 History Isosorbide Mononitrate ER [Imdur] 30 mg PO DAILY 04/16/21 08/26/22 History Potassium Chloride ER [K-Dur 20] 20 meq PO DAILY 04/16/21 08/26/22 History Sertraline HCl [Zoloft] 50 mg PO DAILY 04/16/21 08/26/22 History Acetaminophen [Tylenol 8 Hour] 650 mg PO TID 08/26/22 08/26/22 History Lansoprazole [Prevacid 24Hr] 15 mg PO DAILY 08/26/22 08/26/22 History Metoprolol Tartrate [Lopressor] 12.5 mg PO BID 08/26/22 08/26/22 History hydroCHLOROthiazide 12.5 mg PO DAILY 08/26/22 08/26/22 History Allergies Allergy/AdvReac Type Severity Reaction Status Date / Time bee venom protein (honey bee) Allergy Rash/Hives Verified 04/22/23 22:57 Penicillins Allergy Rash/Hives Verified 04/22/23 22:57 vitamin b 12 Allergy Anaphylaxis Uncoded 04/22/23 22:57 Physical Exam Vitals: Vital Signs Temp Pulse Resp BP Pulse Ox 04/23/23 08:58 98.3 F 68 20 120/49 95 04/23/23 08:38 98.5 F 68 18 115/50 95 04/23/23 08:26 98.7 F 73 18 116/58 97 04/23/23 07:34 64 20 131/54 96 04/23/23 05:43 98.3 F 63 18 121/58 95 04/23/23 03:00 66 18 135/63 96 04/23/23 02:45 98.3 F 66 18 133/51 95 04/23/23 02:25 98.5 F 66 18 133/50 95 04/23/23 02:00 98.5 F 66 18 133/57 96 04/23/23 00:00 98.7 F 63 16 118/51 95 04/22/23 22:51 100.2 F H 68 18 119/72 98 Intake and Output 04/22/23 04/23/23 04/23/23 22:59 06:59 14:59 Intake Total 310 0 Balance 310 0 Intake: Blood Product 310 0 Rc As-1 Unit 0 [id number] Rc As-1 Unit 310 [id number] Other: Weight 84.822 kg GENERAL: The patient is alert and oriented x3, not in any acute distress. Well developed, well nourished. HEENT: Pupils are round and equally reacting to light. EOMI. No scleral icterus. No conjunctival pallor. Normocephalic, atraumatic. No pharyngeal erythema. No thyromegaly. CARDIOVASCULAR: S1 and S2 present. No murmurs, rubs, or gallops. PULMONARY: Chest is clear to auscultation, no wheezing , no crackles. -ABDOMEN: Soft, mild epigastric tenderness,, normoactive bowel sounds. No palpable organomegaly. MUSCULOSKELETAL: No joint swelling or deformity. EXTREMITIES: No cyanosis, clubbing, or pedal edema. NEUROLOGICAL: Gross neurological examination did not reveal any focal deficits. SKIN: No rashes. no petechiae. Results CBC & Chem 7: 04/23/23 08:00 04/22/23 23:15 Labs: Abnormal Lab Results - Last 24 Hours (Table) 04/22/23 04/22/23 04/22/23 Range/Units 23:15 23:15 23:15 RBC 2.94 L (3.80-5.40) m/uL Hgb 5.5 L* (11.4-16.0) gm/dL Hct 19.5 L* (34.0-46.0) % MCV 66.2 L (80.0-100.0) fL MCH 18.7 L (25.0-35.0) pg MCHC 28.3 L (31.0-37.0) g/dL RDW 15.8 H (11.5-15.5) % Plt Count 526 H (150-450) k/uL APTT 19.3 L (22.0-30.0) sec Glucose 130 H (74-99) mg/dL Plasma Lactic Acid Gideon (0.7-2.0) mmol/L Crossmatch 04/22/23 04/22/23 04/23/23 Range/Units 23:15 23:15 04:56 RBC (3.80-5.40) m/uL Hgb (11.4-16.0) gm/dL Hct (34.0-46.0) % MCV (80.0-100.0) fL MCH (25.0-35.0) pg MCHC (31.0-37.0) g/dL RDW (11.5-15.5) % Plt Count (150-450) k/uL APTT (22.0-30.0) sec Glucose (74-99) mg/dL Plasma Lactic Acid Gideon 3.0 H* 2.6 H* (0.7-2.0) mmol/L Crossmatch See Detail 04/23/23 Range/Units 08:00 RBC 3.65 L (3.80-5.40) m/uL Hgb 7.7 L D (11.4-16.0) gm/dL Hct 26.0 L (34.0-46.0) % MCV 71.1 L (80.0-100.0) fL MCH 21.0 L (25.0-35.0) pg MCHC 29.6 L (31.0-37.0) g/dL RDW 17.2 H (11.5-15.5) % Plt Count 482 H (150-450) k/uL APTT (22.0-30.0) sec Glucose (74-99) mg/dL Plasma Lactic Acid Gideon (0.7-2.0) mmol/L Crossmatch Assessment and Plan Assessment: Severe anemia present on admission, GI bleed still possibility Hypertension Hyperlipidemia Chronic heart failure History of CVA History of GERD Plan: Continue with Protonix. Patient will get second unit of blood transfusion. Start normal saline 50 Sami per hour after that Hold aspirin or any blood thinner Follow-up anemia workup Follow-up hemoglobin [employer] team consult Consult Surgery Team (no GI coverage in this facility during the weekend) Labs and medication were reviewed.. Continue same treatment. Continue with symptomatic treatment. Resume home medication. Monitor labs and vitals. DVT and GI prophylaxis. Further recommendations as per clinical course of the patient DVT prophylaxis: no Subcutaneous heparin given severe anemia and possible GI bleed GI Prophylaxis: Ppi Prognosis is guarded
[2023-04-23] MEDS: SODIUM CHLORIDE 0.9% 1,000 ML IV SCH (11:56)
[2023-04-23] MEDS: PANTOPRAZOLE 40 MG/10 ML VIAL IVP SCH ×2 (11:58→20:48)
[2023-04-23 12:55] LABS: Anisocytosis Slight; Basophils % (A) 0 %; Eosinophils # (A) 0.4 k/uL (0-0.7); Eosinophils % (A) 5 %; HCT 28.6 % (34.0-46.0); HGB 8.6 gm/dL (11.4-16.0); Hypochromasia Marked; Lymphocytes # (A) 1.2 k/uL (1.0-4.8); Lymphocytes % (A) 15 %; MCH 21.5 pg (25.0-35.0); MCHC 30.1 g/dL (31.0-37.0); MCV 71.4 fL (80.0-100.0); Mean Platelet Volume 8.1; Microcytosis Marked; Monocytes # (A) 0.4 k/uL (0-1.0); Monocytes % (A) 6 %; Neutrophils # (A) 5.7 k/uL (1.3-7.7); Neutrophils % (A) 72 %; Platelet Count 484 k/uL (150-450); Poikilocytosis Marked; RDW 17.8 % (11.5-15.5); WBC 7.9 k/uL (3.8-10.6)
[2023-04-23] MEDS: SODIUM FERRIC GLUCONAT-SUCROSE 125 MG in SODIUM CHLORIDE 0.9% 100 ML IVPB SCH (13:07)
[2023-04-23] MEDS ORDERED: MECLIZINE 12.5 MG TAB PO PRN (17:31)
[2023-04-23] MEDS ORDERED: CALCIUM CARBONATE 500 MG CHEWABLE PO PRN (17:31)
[2023-04-23] MEDS ORDERED: ACETAMINOPHEN TAB 325 MG TAB PO PRN (17:31)
--- NOTE | 2023-04-23 19:33 | P.CONS ---
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 Consult was placed for anemia. Upon admission CBC revealed microcytic hypochromic anemia, with hemoglobin of 5.5 and patient was given 2 units of PRBCs. WBC 7.2, platelets 526,000. Today hemoglobin improved, 7.7. Iron studies revealed significant iron deficiency anemia with ferritin 4.6, iron saturation 2.1%. Folate and B12 pending. Patient reports prior to admission she was experiencing intermittent lightheadedness that was worse upon standing up and had a fall at the long term 2 nights ago but denies syncope. Patient reports last EGD was approximately [address] Fischer, but denies any noted acute bleeding. Last colonoscopy was approximately 5 to 10 years ago. Reports a history of anemia during but has not required blood transfusions in the past. Patient reports prior to admission she was experiencing intermittent dark stools, last occurrence last week. Also reports experiencing vomiting 2 days ago which was dark in color with nany blood. Stool occult negative. Patient denies abdominal pain. Denies diarrhea. Denies fever and chills. Review of Systems 10 point ROS is negative except as stated in the HPI Past Medical History Past Medical History: Heart Failure, CVA/TIA, GERD/Reflux, Hyperlipidemia, Hypertension Additional Past Medical History / Comment(s): weakness History of Any Multi-Drug Resistant Organisms: None Reported Past Surgical History: Pacemaker Past Anesthesia/Blood Transfusion Reactions: No Reported Reaction Additional Past Anesthesia/Blood Transfusion Reaction / Comm: PER [facility] Type of Cardiac Device: Unknown Device Placement Date:: UNK Past Psychological History: Depression Smoking Status: Former smoker Past Alcohol Use History: Rare Past Drug Use History: None Reported - Past Family History Father Family Medical History: Cancer Brother(s) Additional Family Medical History / Comment(s): suicide Medications and Allergies Home Medications Medication Instructions Recorded Confirmed Type Aspirin EC [Ecotrin Low Dose] 81 mg PO DAILY 04/16/21 04/23/23 History Atorvastatin Calcium [Lipitor] 40 mg PO DAILY@199904/16/21 04/23/23 History Clopidogrel [Plavix] 75 mg PO HS 04/16/21 04/23/23 History Furosemide [Lasix] 20 mg PO DAILY 04/16/21 04/23/23 History Isosorbide Mononitrate ER [Imdur] 30 mg PO DAILY 04/16/21 04/23/23 History Potassium Chloride ER [K-Dur 20] 20 meq PO DAILY 04/16/21 04/23/23 History Sertraline HCl [Zoloft] 50 mg PO DAILY 04/16/21 04/23/23 History Acetaminophen [Tylenol 8 Hour] 650 mg PO BID 08/26/22 04/23/23 History hydroCHLOROthiazide 12.5 mg PO DAILY 08/26/22 04/23/23 History Calcium Carbonate 1,000 mg PO ACHS PRN 04/23/23 04/23/23 History Levocetirizine Dihydrochloride 5 mg PO HS@199904/23/23 04/23/23 History Loperamide [Imodium] 2 - 4 mg PO TID PRN MDD 8 mg 04/23/23 04/23/23 History Meclizine [Antivert] 12.5 mg PO TID@0700,1300,1900 04/23/23 04/23/23 History Metoprolol Tartrate [Lopressor] 12.5 mg PO BID 04/23/23 04/23/23 History Pantoprazole [Protonix] 40 mg PO DAILY 04/23/23 04/23/23 History Allergies Allergy/AdvReac Type Severity Reaction Status Date / Time bee venom protein (honey bee) Allergy Rash/Hives Verified 04/23/23 12:44 Penicillins Allergy Rash/Hives Verified 04/23/23 12:44 vitamin b 12 Allergy Anaphylaxis Uncoded 04/22/23 22:57 Physical Exam Vitals: Vital Signs Temp Pulse Pulse Resp BP BP Pulse Ox 04/23/23 14:23 96.9 F L 68 16 131/60 95 04/23/23 13:37 98.2 F 70 18 133/62 95 04/23/23 13:05 68 18 133/62 95 04/23/23 11:53 68 18 107/50 97 04/23/23 10:54 98.5 F 70 20 115/61 96 04/23/23 09:34 67 20 120/58 95 04/23/23 08:58 98.3 F 68 20 120/49 95 04/23/23 08:38 98.5 F 68 18 115/50 95 04/23/23 08:26 98.7 F 73 18 116/58 97 04/23/23 07:34 64 20 131/54 96 04/23/23 05:43 98.3 F 63 18 121/58 95 04/23/23 03:00 66 18 135/63 96 04/23/23 02:45 98.3 F 66 18 133/51 95 04/23/23 02:25 98.5 F 66 18 133/50 95 04/23/23 02:00 98.5 F 66 18 133/57 96 04/23/23 00:00 98.7 F 63 16 118/51 95 04/22/23 22:51 100.2 F H 68 18 119/72 98 Intake and Output 04/23/23 04/23/23 04/23/23 06:59 14:59 22:59 Intake Total 310 310 Balance 310 310 Intake: Blood Product 310 310 Rc As-1 Unit 310 [id number] Rc As-1 Unit 310 [id number] Other: Voiding Method Diaper External Catheter - Constitutional General appearance: no acute distress - EENT Eyes: anicteric sclerae, EOMI ENT: hearing grossly normal - Respiratory Respiratory: bilateral: CTA - Cardiovascular Rhythm: regular Heart sounds: normal: S1, S2 - Gastrointestinal General gastrointestinal: soft, no tenderness - Integumentary Integumentary: no cyanotic, pale - Musculoskeletal Musculoskeletal: generalized weakness - Psychiatric Psychiatric: A&O x's 3, appropriate affect, intact judgment & insight Results CBC & Chem 7: 04/23/23 12:24 04/22/23 23:15 Labs: Abnormal Lab Results - Last 24 Hours (Table) 04/22/23 04/22/23 04/22/23 Range/Units 23:15 23:15 23:15 RBC 2.94 L (3.80-5.40) m/uL Hgb 5.5 L* (11.4-16.0) gm/dL Hct 19.5 L* (34.0-46.0) % MCV 66.2 L (80.0-100.0) fL MCH 18.7 L (25.0-35.0) pg MCHC 28.3 L (31.0-37.0) g/dL RDW 15.8 H (11.5-15.5) % Plt Count 526 H (150-450) k/uL APTT 19.3 L (22.0-30.0) sec Glucose 130 H (74-99) mg/dL Plasma Lactic Acid Gideon (0.7-2.0) mmol/L Iron 9 L (50-170) UG/DL % Saturation 2.14 L (12.00-45.00) Ferritin 4.6 L (10.0-291.0) ng/mL Crossmatch 04/22/23 04/22/23 04/23/23 Range/Units 23:15 23:15 04:56 RBC (3.80-5.40) m/uL Hgb (11.4-16.0) gm/dL Hct (34.0-46.0) % MCV (80.0-100.0) fL MCH (25.0-35.0) pg MCHC (31.0-37.0) g/dL RDW (11.5-15.5) % Plt Count (150-450) k/uL APTT (22.0-30.0) sec Glucose (74-99) mg/dL Plasma Lactic Acid Gideon 3.0 H* 2.6 H* (0.7-2.0) mmol/L Iron (50-170) UG/DL % Saturation (12.00-45.00) Ferritin (10.0-291.0) ng/mL Crossmatch See Detail 04/23/23 04/23/23 04/23/23 Range/Units 08:00 12:24 12:24 RBC 3.65 L (3.80-5.40) m/uL Hgb 7.7 L D 8.6 L (11.4-16.0) gm/dL Hct 26.0 L 28.6 L (34.0-46.0) % MCV 71.1 L 71.4 L (80.0-100.0) fL MCH 21.0 L 21.5 L (25.0-35.0) pg MCHC 29.6 L 30.1 L (31.0-37.0) g/dL RDW 17.2 H 17.8 H (11.5-15.5) % Plt Count 482 H 484 H (150-450) k/uL APTT (22.0-30.0) sec Glucose (74-99) mg/dL Plasma Lactic Acid Gideon 2.4 H* (0.7-2.0) mmol/L Iron (50-170) UG/DL % Saturation (12.00-45.00) Ferritin (10.0-291.0) ng/mL Crossmatch Assessment and Plan (1) Microcytic anemia Current Visit: Yes Status: Acute Priority: High Code(s): D50.9 - IRON DEFICIENCY ANEMIA, UNSPECIFIED SNOMED Code(s): 518786150 Plan: Iron deficiency anemia: -Significant history on 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 Prior to admission, pt reports melena and hematemesis. Last EGD approx 1 yr ago, with no acute bleed noted -Upon admission CBC revealed microcytic hypochromic anemia, with hemoglobin of 5.5, s/p 2 units of PRBCs. Today hemoglobin improved at 7.7. Iron studies revealed significant iron deficiency anemia with ferritin 4.6, iron saturation 2.1%. Folate and B12 pending. Will obtain rest of anemia workup -IV iron started x 4 doses -General surgery consulted -Will continue to monitor. Please transfuse for hgb less than 7 or if symptomatic
[2023-04-23] MEDS: LORATADINE 10 MG TAB PO SCH (20:48)
[2023-04-23] MEDS: METOPROLOL TARTRATE 12.5 MG TAB PO SCH (20:48)
[2023-04-23] MEDS: ATORVASTATIN 40 MG TAB PO SCH (20:48)
[2023-04-23] MEDS ORDERED: SODIUM CHLORIDE 0.9% 500 ML 500 ML IV ONE (23:09)
[2023-04-24 00:16] LABS: Anisocytosis Slight; HCT 28.5 % (34.0-46.0); HGB 8.1 gm/dL (11.4-16.0); Hypochromasia Marked; MCH 21.4 pg (25.0-35.0); MCHC 28.4 g/dL (31.0-37.0); MCV 75.4 fL (80.0-100.0); Mean Platelet Volume 7.7; Microcytosis Slight; Platelet Count 446 k/uL (150-450); Poikilocytosis Marked; RBC 3.77 m/uL (3.80-5.40); WBC 8.2 k/uL (3.8-10.6)
[2023-04-24] MEDS: SODIUM CHLORIDE 0.9% 1,000 ML IV SCH (00:18)
[2023-04-24] MEDS: PANTOPRAZOLE 40 MG/10 ML VIAL IVP SCH ×2 (08:51→21:17)
[2023-04-24] MEDS: METOPROLOL TARTRATE 12.5 MG TAB PO SCH ×2 (08:51→21:17)
[2023-04-24] MEDS: ISOSORBIDE MONONITRATE ER 30 MG TAB.ER.24H PO SCH (08:51)
[2023-04-24] MEDS: SERTRALINE 50 MG TAB PO SCH (08:52)
[2023-04-24] MEDS: SODIUM FERRIC GLUCONAT-SUCROSE 125 MG in SODIUM CHLORIDE 0.9% 100 ML IVPB SCH (08:53)
--- NOTE | 2023-04-24 09:51 | P.PN ---
Subjective This is a pleasant 83 years old female with multiple medical problems include Heart Failure, CVA/TIA, GERD/Reflux, Hyperlipidemia, Hypertension Patient lives as an long term resident at [facility] , patient states to me that at baseline she does not walk. 2 days ago she started having vomiting, she vomited her breakfast and dinner, she denies fresh blood in her vomitus but she says it looks like dark coffee. Also patient complaining of mild epigastric pain and tenderness. She denies using extra pain medication over the last week. She denies dizziness, no weakness or headache. No chest pain or dyspnea. No specific urinary complaints. No smoking or Acute alcohol or illicit drugs. Currently patient getting another unit of blood transfusion Patient is hemodynamically stable. Labs reviewed showing no leukocytosis, hemoglobin on admission was 5.5, after blood transfusion went up to 7.7 Platelet is elevated for 82. Rest of BMP and liver enzymes were unremarkable Lactic acid elevated at 3.3 and came down to 2.6. Occult blood in the stool is negative. EGD on 08/31/22 showing large hiatal hernia with no evidence of esophagitis or Mitchell's esophagus, mild antral gastritis 04/24/2023 Patient today is mildly lethargic, she denies specific symptoms no chest pain or dyspnea. No abdominal or epigastric pain, tenderness is less pronounced. She is hemodynamically stable, earlier oxygen saturation was 89% on room air. Fever present on admission about 100 is resolved which could be reactive, rule out infection. Because of this recurrent to repeat chest x-ray today. She remains on normal saline 50 mL per hour, her lactic acid is still 2.4. It is improving slowly and gradually. Hemoglobin improved to 8.2. Rest of labs are unremarkable. She is on IV Protonix twice a day and IV iron. She is also normal saline 50 mL/h which may be increased right leg alone. Occult blood in the stool is negative. Active Medications Generic Name Dose Route Start Last Admin Trade Name Freq PRN Reason Stop Dose Admin Acetaminophen 650 mg 04/23/23 17:31 Acetaminophen Tab 325 Mg Tab PO Q6HR PRN Pain/Discomfort Atorvastatin Calcium 40 mg 04/23/23 20:00 04/23/23 20:48 Atorvastatin 40 Mg Tab PO 40 mg DAILY@2000 BRIANNA Administration Calcium Carbonate/Glycine 500 mg 04/23/23 17:31 Calcium Carbonate 500 Mg Chewable PO ACHS PRN gerd Sodium Chloride 1,000 mls @ 50 mls/hr 04/23/23 10:45 04/24/23 00:18 Saline 0.9% IV 50 mls/hr .Q20H BRIANNA Administration Ferric Sodium Gluconate 125 mg 110 mls @ 100 mls/hr 04/23/23 13:00 04/24/23 08:53 / Sodium Chloride IVPB 04/26/23 10:05 100 mls/hr DAILY BRIANNA Administration Isosorbide Mononitrate 30 mg 04/24/23 09:00 04/24/23 08:51 Isosorbide Mononitrate Er 30 Mg Tab.Er.24h PO 30 mg DAILY BRIANNA Administration Loratadine 10 mg 04/23/23 20:00 04/23/23 20:48 Loratadine 10 Mg Tab PO 10 mg HS@2000 BRIANNA Administration Meclizine HCl 12.5 mg 04/23/23 17:31 Meclizine 12.5 Mg Tab PO TID PRN Vertigo Metoprolol Tartrate 12.5 mg 04/23/23 21:00 04/24/23 08:51 Metoprolol Tartrate 12.5 Mg Tab PO 12.5 mg BID BRIANNA Administration Naloxone HCl 0.2 mg 04/23/23 00:51 Naloxone 0.4 Mg/Ml 1 Ml Vial IV Q2M PRN Opioid Reversal Pantoprazole Sodium 40 mg 04/23/23 10:30 04/24/23 08:51 Pantoprazole 40 Mg/10 Ml Vial IVP 40 mg BID BRIANNA Administration Sertraline HCl 50 mg 04/24/23 09:00 04/24/23 08:52 Sertraline 50 Mg Tab PO 50 mg DAILY BRIANNA Administration Objective - Vital Signs Vital signs: Vital Signs Temp 96.3 F L 04/24/23 08:48 Pulse 66 04/24/23 08:48 Resp 16 04/24/23 08:59 BP 126/59 04/24/23 08:48 Pulse Ox 96 04/24/23 08:59 FiO2 Intake & Output 04/23/23 04/24/23 04/24/23 18:59 06:59 18:59 Intake Total 668 Output Total 475 750 Balance 193 -750 Weight 93.5 kg Intake: Oral 358 Blood Product 310 Rc As-1 Unit 310 [id number] Output: Urine 475 750 Other: Voiding Method Diaper Diaper External Catheter External Catheter - Exam -GENERAL: The patient is alert and oriented x3, not in any acute distress. Obese HEENT: Pupils are round and equally reacting to light. EOMI. No scleral icterus. No conjunctival pallor. Normocephalic, atraumatic. No pharyngeal erythema. No thyromegaly. CARDIOVASCULAR: S1 and S2 present. No murmurs, rubs, or gallops. PULMONARY: Chest is clear to auscultation, no wheezing , no crackles. ABDOMEN: Soft, nontender, nondistended, normoactive bowel sounds. No palpable organomegaly. MUSCULOSKELETAL: No joint swelling or deformity. EXTREMITIES: No cyanosis, clubbing, or pedal edema. NEUROLOGICAL: Gross neurological examination did not reveal any focal deficits. SKIN: No rashes. no petechiae. - Labs CBC & Chem 7: 04/23/23 23:41 04/22/23 23:15 Labs: Abnormal Lab Results - Last 24 Hours (Table) 04/22/23 04/23/23 04/23/23 Range/Units 23:15 12:24 12:24 RBC (3.80-5.40) m/uL Hgb 8.6 L (11.4-16.0) gm/dL Hct 28.6 L (34.0-46.0) % MCV 71.4 L (80.0-100.0) fL MCH 21.5 L (25.0-35.0) pg MCHC 30.1 L (31.0-37.0) g/dL RDW 17.8 H (11.5-15.5) % Plt Count 484 H (150-450) k/uL Plasma Lactic Acid Gideon 2.4 H* (0.7-2.0) mmol/L Vitamin B12 (200.0-944.0) pg/mL Crossmatch See Detail 04/23/23 04/23/23 04/23/23 Range/Units 12:24 16:05 19:21 RBC (3.80-5.40) m/uL Hgb (11.4-16.0) gm/dL Hct (34.0-46.0) % MCV (80.0-100.0) fL MCH (25.0-35.0) pg MCHC (31.0-37.0) g/dL RDW (11.5-15.5) % Plt Count (150-450) k/uL Plasma Lactic Acid Gideon 2.3 H* 3.5 H* (0.7-2.0) mmol/L Vitamin B12 199.0 L (200.0-944.0) pg/mL Crossmatch 04/23/23 04/23/23 04/24/23 Range/Units 22:30 23:41 02:05 RBC 3.77 L (3.80-5.40) m/uL Hgb 8.1 L (11.4-16.0) gm/dL Hct 28.5 L (34.0-46.0) % MCV 75.4 L (80.0-100.0) fL MCH 21.4 L (25.0-35.0) pg MCHC 28.4 L (31.0-37.0) g/dL RDW 18.0 H (11.5-15.5) % Plt Count (150-450) k/uL Plasma Lactic Acid Gideon 2.5 H* 2.4 H* (0.7-2.0) mmol/L Vitamin B12 (200.0-944.0) pg/mL Crossmatch Assessment and Plan Assessment: Severe anemia present on admission, GI bleed still possibility Iron deficiency anemia Vitamin B12 deficiency Mild hypoxia with mild fever on admission Hypertension Hyperlipidemia Chronic heart failure History of CVA History of GERD Plan: Continue with Protonix. Continue with IV hydration Start vitamin B12 aspirin therapy Hold aspirin or any blood thinner Manager Banking team consult Consult Surgery Team (no GI coverage in this facility during the weekend) Labs and medication were reviewed.. Continue same treatment. Continue with symptomatic treatment. Resume home medication. Monitor labs and vitals. DVT and GI prophylaxis. Further recommendations as per clinical course of the patient DVT prophylaxis: no Subcutaneous heparin given severe anemia and possible GI bleed GI Prophylaxis: Ppi Prognosis is guarded
[2023-04-24 09:54] LABS: Anisocytosis Slight; Basophils % (A) 1 %; Eosinophils # (A) 0.4 k/uL (0-0.7); Eosinophils % (A) 5 %; HCT 30.3 % (34.0-46.0); HGB 8.9 gm/dL (11.4-16.0); Hypochromasia Marked; Lymphocytes # (A) 1.3 k/uL (1.0-4.8); Lymphocytes % (A) 16 %; MCH 21.4 pg (25.0-35.0); MCHC 29.4 g/dL (31.0-37.0); MCV 72.9 fL (80.0-100.0); Mean Platelet Volume 6.7; Microcytosis Moderate; Monocytes # (A) 0.5 k/uL (0-1.0); Monocytes % (A) 6 %; Neutrophils # (A) 6.2 k/uL (1.3-7.7); Neutrophils % (A) 72 %; Platelet Count 455 k/uL (150-450); Poikilocytosis Marked; RBC 4.15 m/uL (3.80-5.40); RDW 18.3 % (11.5-15.5); WBC 8.5 k/uL (3.8-10.6)
--- NOTE | 2023-04-24 10:02 | XR ---
EXAMINATION TYPE: XR chest 1V DATE OF EXAM: 04/24/2023 9:54 AM CLINICAL INDICATION:Female, 83 years old with history of epigastric pain; [facility] COMPARISON: Chest radiographs from TECHNIQUE: XR chest 1V Frontal view of the chest. FINDINGS: Lungs/Pleura: Small left pleural effusion. No evidence of pneumothorax. Pulmonary vascularity: Unremarkable. Heart/mediastinum: Cardiomediastinal silhouette is unremarkable. Atherosclerotic calcifications are seen in the aorta. Suspected hiatal hernia present. Musculoskeletal: No acute osseous pathology. Other findings: Left chest wall AICD device. IMPRESSION: 1. Small left pleural effusion. 2. Suspected hiatal hernia.
[2023-04-24 10:13] LABS: African American GFR (CKD) >90 (>60 ml/min/1.73 sqM); Anion Gap 11 mmol/L; Blood Urea Nitrogen 7 mg/dL (7-17); Calcium 9.2 mg/dL (8.4-10.2); Carbon Dioxide 21 mmol/L (22-30); Chloride 108 mmol/L (98-107); Glucose 108 mg/dL (74-99); Non-African American GFR(CKD) 82 (>60 ml/min/1.73 sqM); Potassium 3.7 mmol/L (3.5-5.1); Sodium 140 mmol/L (137-145)
--- NOTE | 2023-04-24 10:20 | P.PN ---
Progress Note - Text Progress Note Date: 04/24/23 Patient will be scheduled for EGD in the a.m.
[2023-04-24] MEDS ORDERED: CYANOCOBALAMIN 1,000 MCG/ML 1 ML VIAL IM ONE (11:00)
[2023-04-24 13:33] LABS: Appearance,Urine Cloudy (Clear); Bacteria,Urine Many /hpf; Bilirubin,Urine Negative (Negative); Blood,Urine Small (Negative); Budding Yeast,Urine Occasional /hpf; Color,Urine Yellow; Glucose,Urine (UA) Negative (Negative); Hyaline Casts,Urine 3 /lpf (0-2); Ketones,Urine Negative (Negative); Leukocyte Esterase,Urine Large (Negative); Mucus,Urine Rare /hpf; Nitrite,Urine Positive (Negative); PH, Urine 5.5 (5.0-8.0); Protein,Urine Trace (Negative); RBC,Urine 7 /hpf (0-5); Specific Gravity,Urine 1.021 (1.001-1.035); Squamous Epithelial Cell,Urine 2 /hpf (0-4); Urobilinogen,Urine <2.0 mg/dL (<2.0); WBC,Urine >182 /hpf (0-5)
[2023-04-24] MEDS: ATORVASTATIN 40 MG TAB PO SCH (21:17)
[2023-04-24] MEDS: LORATADINE 10 MG TAB PO SCH (21:17)
[2023-04-25] MEDS: SODIUM CHLORIDE 0.9% 1,000 ML IV SCH ×2 (04:57→23:08)
[2023-04-25] MEDS: METOPROLOL TARTRATE 12.5 MG TAB PO SCH ×2 (08:20→20:33)
[2023-04-25] MEDS: CYANOCOBALAMIN 500 MCG TAB PO SCH (08:20)
[2023-04-25] MEDS: PANTOPRAZOLE 40 MG/10 ML VIAL IVP SCH ×2 (08:20→20:33)
[2023-04-25] MEDS: SERTRALINE 50 MG TAB PO SCH (08:20)
[2023-04-25] MEDS: ISOSORBIDE MONONITRATE ER 30 MG TAB.ER.24H PO SCH (08:20)
[2023-04-25] MEDS: SODIUM FERRIC GLUCONAT-SUCROSE 125 MG in SODIUM CHLORIDE 0.9% 100 ML IVPB SCH (08:20)
[2023-04-25 08:30] LABS: Anisocytosis Slight; Basophils % (A) 0 %; Eosinophils # (A) 0.5 k/uL (0-0.7); Eosinophils % (A) 5 %; HCT 28.3 % (34.0-46.0); HGB 8.3 gm/dL (11.4-16.0); Hypochromasia Marked; Lymphocytes # (A) 1.3 k/uL (1.0-4.8); Lymphocytes % (A) 15 %; MCH 21.8 pg (25.0-35.0); MCHC 29.2 g/dL (31.0-37.0); MCV 74.5 fL (80.0-100.0); Mean Platelet Volume 7.4; Microcytosis Moderate; Monocytes # (A) 0.5 k/uL (0-1.0); Monocytes % (A) 6 %; Neutrophils # (A) 6.3 k/uL (1.3-7.7); Neutrophils % (A) 71 %; Platelet Count 410 k/uL (150-450); Poikilocytosis Marked; RDW 18.7 % (11.5-15.5); WBC 8.9 k/uL (3.8-10.6)
[2023-04-25 08:43] LABS: African American GFR (CKD) >90 (>60 ml/min/1.73 sqM); Anion Gap 7 mmol/L; Blood Urea Nitrogen 9 mg/dL (7-17); Calcium 8.7 mg/dL (8.4-10.2); Carbon Dioxide 22 mmol/L (22-30); Chloride 109 mmol/L (98-107); Glucose 83 mg/dL (74-99); Non-African American GFR(CKD) 82 (>60 ml/min/1.73 sqM); Sodium 138 mmol/L (137-145)
[2023-04-25] MEDS ORDERED: CYANOCOBALAMIN 1,000 MCG/ML 1 ML VIAL IM SCH (09:30)
--- NOTE | 2023-04-25 12:07 | P.PN ---
Subjective Progress Note Date: 04/25/23 CHIEF COMPLAINT: Anemia HISTORY OF PRESENT ILLNESS: Patient is sleeping comfortably. No abdominal pain reported. Patient scheduled for EGD for evaluation of anemia today. Vital stable. Hemoglobin 8.3. Stool for occult blood negative PHYSICAL EXAM: VITAL SIGNS: Reviewed. GENERAL: Well-developed in no acute distress. ABDOMEN: Soft. Nondistended. Nontender. ASSESSMENT: 1. Anemia PLAN: -Patient scheduled for EGD today with Dr. Mcleod Physician Injection Operator note has been reviewed by physician. Signing provider agrees with the documented findings, assessment, and plan of care. Objective - Vital Signs Vital signs: Vital Signs Temp 98.6 F 04/25/23 04:00 Pulse 69 04/25/23 08:00 Resp 16 04/25/23 08:00 BP 128/61 04/25/23 08:00 Pulse Ox 90 L 04/25/23 08:00 FiO2 Intake & Output 04/24/23 04/25/23 04/25/23 18:59 06:59 18:59 Intake Total 360 Output Total 600 Balance 360 -600 Intake: Oral 360 Output: Urine 600 Other: Voiding Method Diaper Diaper Diaper External Catheter External Catheter External Catheter # Bowel Movements 1 - Labs CBC & Chem 7: 04/25/23 07:56 04/25/23 07:56 Labs: Abnormal Lab Results - Last 24 Hours (Table) 04/24/23 04/25/23 04/25/23 Range/Units 12:10 07:56 07:56 Hgb 8.3 L (11.4-16.0) gm/dL Hct 28.3 L (34.0-46.0) % MCV 74.5 L (80.0-100.0) fL MCH 21.8 L (25.0-35.0) pg MCHC 29.2 L (31.0-37.0) g/dL RDW 18.7 H (11.5-15.5) % Chloride 109 H (98-107) mmol/L Urine Appearance Cloudy H (Clear) Urine Protein Trace H (Negative) Urine Blood Small H (Negative) Urine Nitrite Positive H (Negative) Ur Leukocyte Esterase Large H (Negative) Urine RBC 7 H (0-5) /hpf Urine WBC >182 H (0-5) /hpf Urine WBC Clumps Few H (None) /hpf Urine Bacteria Many H (None) /hpf Hyaline Casts 3 H (0-2) /lpf Urine Mucus Rare H (None) /hpf Urine Yeast (Budding) Occasional H (None) /hpf
--- NOTE | 2023-04-25 12:52 | P.PN ---
Subjective Progress Note Date: 04/25/23 CHIEF COMPLAINT: Anemia HISTORY OF PRESENT ILLNESS: Patient is sleeping comfortably. No abdominal pain reported. Patient scheduled for EGD for evaluation of anemia today. Vital stable. Hemoglobin 8.3. Stool for occult blood negative PHYSICAL EXAM: VITAL SIGNS: Reviewed. GENERAL: Well-developed in no acute distress. ABDOMEN: Soft. Nondistended. Nontender. ASSESSMENT: 1. Anemia PLAN: -Patient scheduled for EGD today with Dr. Mcleod Physician Personal Vehicle Advisor note has been reviewed by physician. Signing provider agrees with the documented findings, assessment, and plan of care. Objective - Vital Signs Vital signs: Vital Signs Temp 98.6 F 04/25/23 04:00 Pulse 65 04/25/23 12:00 Resp 16 04/25/23 12:00 BP 128/62 04/25/23 12:00 Pulse Ox 90 L 04/25/23 12:00 FiO2 Intake & Output 04/24/23 04/25/23 04/25/23 18:59 06:59 18:59 Intake Total 360 Output Total 600 Balance 360 -600 Intake: Oral 360 Output: Urine 600 Other: Voiding Method Diaper Diaper Diaper External Catheter External Catheter External Catheter # Bowel Movements 1 - Labs CBC & Chem 7: 04/25/23 07:56 04/25/23 07:56 Labs: Abnormal Lab Results - Last 24 Hours (Table) 04/24/23 04/25/23 04/25/23 Range/Units 12:10 07:56 07:56 Hgb 8.3 L (11.4-16.0) gm/dL Hct 28.3 L (34.0-46.0) % MCV 74.5 L (80.0-100.0) fL MCH 21.8 L (25.0-35.0) pg MCHC 29.2 L (31.0-37.0) g/dL RDW 18.7 H (11.5-15.5) % Chloride 109 H (98-107) mmol/L Urine Appearance Cloudy H (Clear) Urine Protein Trace H (Negative) Urine Blood Small H (Negative) Urine Nitrite Positive H (Negative) Ur Leukocyte Esterase Large H (Negative) Urine RBC 7 H (0-5) /hpf Urine WBC >182 H (0-5) /hpf Urine WBC Clumps Few H (None) /hpf Urine Bacteria Many H (None) /hpf Hyaline Casts 3 H (0-2) /lpf Urine Mucus Rare H (None) /hpf Urine Yeast (Budding) Occasional H (None) /hpf
[2023-04-25] MEDS ORDERED: LIDOCAINE 1% INJ 10MG/ML (20 ML MDV) ONE (13:11)
[2023-04-25] MEDS ORDERED: PROPOFOL 10 MG/ML 20 ML VIAL IV ONE (13:11)
[2023-04-25] MEDS ORDERED: IV FLUID CONTINUATION 400 ML IV ONE (13:12)
--- NOTE | 2023-04-25 13:26 | P.OP ---
Date of Procedure: 04/25/23 Preoperative Diagnosis: GI bleed Postoperative Diagnosis: Antral gastritis Hiatal hernia Esophagitis Procedure(s) Performed: EGD Anesthesia: MAC Surgeon: Shemar Mcleod Pathology: other (Antrum, esophagus) Condition: stable Disposition: PACU Description of Procedure: The patient's placed on the endoscopy table in the lateral position. She received IV sedation. The gastroscope placed oropharynx passed in the esophagus. Scope was then placed through the pylorus. The first and second portion duodenum appeared normal. Scope summer back the antrum this appeared to be mildly inflamed. A biopsies performed. Scope was she'll flexed patient appeared to have a moderate size hiatal hernia. The GE junction was at 38 cm. The distal esophagus appeared mildly inflamed. A biopsies performed. The proximal esophagus appeared normal. Scope was withdrawn for patient.
--- NOTE | 2023-04-25 13:42 | P.PN ---
Subjective Progress Note Date: 04/25/23 This is a pleasant 83 years old female with multiple medical problems include Heart Failure, CVA/TIA, GERD/Reflux, Hyperlipidemia, Hypertension Patient lives as an long-term resident at [facility] , patient states to me that at baseline she does not walk. 2 days ago she started having vomiting, she vomited her breakfast and dinner, she denies fresh blood in her vomitus but she says it looks like dark coffee. Also patient complaining of mild epigastric pain and tenderness. She denies using extra pain medication over the last week. She denies dizziness, no weakness or headache. No chest pain or dyspnea. No specific urinary complaints. No smoking or Acute alcohol or illicit drugs. Currently patient getting another unit of blood transfusion Patient is hemodynamically stable. Labs reviewed showing no leukocytosis, hemoglobin on admission was 5.5, after blood transfusion went up to 7.7 Platelet is elevated for 82. Rest of BMP and liver enzymes were unremarkable Lactic acid elevated at 3.3 and came down to 2.6. Occult blood in the stool is negative. EGD on 08/31/22 showing large hiatal hernia with no evidence of esophagitis or Mitchell's esophagus, mild antral gastritis 04/24/2023 Patient today is mildly lethargic, she denies specific symptoms no chest pain or dyspnea. No abdominal or epigastric pain, tenderness is less pronounced. She is hemodynamically stable, earlier oxygen saturation was 89% on room air. Fever present on admission about 100 is resolved which could be reactive, rule out infection. Because of this recurrent to repeat chest x-ray today. She remains on normal saline 50 mL per hour, her lactic acid is still 2.4. It is improving slowly and gradually. Hemoglobin improved to 8.2. Rest of labs are unremarkable. She is on IV Protonix twice a day and IV iron. She is also normal saline 50 mL/h which may be increased right leg alone. Occult blood in the stool is negative. 04/25. Patient seen and examined. Lab work done WBC 8.9, hemoglobin 8.3, plate let count 410, sodium 139 potassium 4, BUN 9, creatinine 0.67 Denies any blood in the stools. Currently nothing by mouth going for EGD today REVIEW OF SYSTEMS: CONSTITUTIONAL: No fever, no malaise,. CARDIOVASCULAR: No chest pain, no palpitations, no syncope. PULMONARY: No shortness of breath, no cough, GASTROINTESTINAL: No diarrhea, no nausea, no vomiting, no abdominal pain. NEUROLOGICAL: No headaches, no weakness, PHYSICAL EXAMINATION: GENERAL: The patient is alert and oriented x3, not in any acute distress. Well developed, well nourished. HEENT: Pupils are round and equally reacting to light. EOMI. No scleral icterus. No conjunctival pallor. Normocephalic, atraumatic. No pharyngeal erythema. No thyromegaly. CARDIOVASCULAR: S1 and S2 present. No murmurs, rubs, or gallops. PULMONARY: Chest is clear to auscultation, no wheezing or crackles. ABDOMEN: Soft, nontender, nondistended, normoactive bowel sounds. No palpable organomegaly. MUSCULOSKELETAL: No joint swelling or deformity. EXTREMITIES: No cyanosis, clubbing, or pedal edema. NEUROLOGICAL: Gross neurological examination did not reveal any focal deficits. SKIN: No rashes. Assessment and plan Severe anemia present on admission, GI bleed still possibility Iron deficiency anemia Vitamin B12 deficiency Mild hypoxia with mild fever on admission Hypertension Hyperlipidemia Chronic heart failure History of CVA History of GERD Monitor vital signs Monitor CBC Monitor CMP Encourage use of incentive spirometer continue IV iron Continue Protonix Avoid antiplatelets Surgery evaluated the patient, planning EGD Hematology oncology following In regards to hypertension continue Lopressor, Imdur Regards to hyperlipidemia continue Lipitor In regards to hypothyroid continue Synthyroid In regards to acute anemia,continue to monitor H&H transfuse for hemodynamic instability or hemoglobin less than 7 Labs and medication were reviewed.. Continue same treatment. Continue with symptomatic treatment. Resume home medication. Monitor labs and vitals. DVT and GI prophylaxis. Further recommendations as per clinical course of the patient Dictation was produced using [employer] dictation software. please excuse any grammatical, word or spelling errors. Objective - Vital Signs Vital signs: Vital Signs Temp 98.6 F 04/25/23 04:00 Pulse 69 04/25/23 08:00 Resp 16 04/25/23 08:00 BP 128/61 04/25/23 08:00 Pulse Ox 90 L 04/25/23 08:00 FiO2 Intake & Output 04/24/23 04/25/23 04/25/23 18:59 06:59 18:59 Intake Total 360 Output Total 600 Balance 360 -600 Intake: Oral 360 Output: Urine 600 Other: Voiding Method Diaper Diaper Diaper External Catheter External Catheter External Catheter # Bowel Movements 1 - Labs CBC & Chem 7: 04/25/23 07:56 04/25/23 07:56 Labs: Abnormal Lab Results - Last 24 Hours (Table) 04/24/23 04/25/23 04/25/23 Range/Units 12:10 07:56 07:56 Hgb 8.3 L (11.4-16.0) gm/dL Hct 28.3 L (34.0-46.0) % MCV 74.5 L (80.0-100.0) fL MCH 21.8 L (25.0-35.0) pg MCHC 29.2 L (31.0-37.0) g/dL RDW 18.7 H (11.5-15.5) % Chloride 109 H (98-107) mmol/L Urine Appearance Cloudy H (Clear) Urine Protein Trace H (Negative) Urine Blood Small H (Negative) Urine Nitrite Positive H (Negative) Ur Leukocyte Esterase Large H (Negative) Urine RBC 7 H (0-5) /hpf Urine WBC >182 H (0-5) /hpf Urine WBC Clumps Few H (None) /hpf Urine Bacteria Many H (None) /hpf Hyaline Casts 3 H (0-2) /lpf Urine Mucus Rare H (None) /hpf Urine Yeast (Budding) Occasional H (None) /hpf
--- NOTE | 2023-04-25 14:18 | P.PN ---
Subjective Progress Note Date: 04/25/23 Principal diagnosis: Iron and B12 deficiency, microcytic, hypochromic anemia In f/u today pt visibly appeared comfortable. We discussed her iron and B12 deficiency found of labs and she reports that she is allergic to B12 and "it will kill me" if she receives it. Objective - Vital Signs Vital signs: Vital Signs Temp 98.6 F 04/25/23 04:00 Pulse 65 04/25/23 12:00 Resp 16 04/25/23 12:00 BP 128/62 04/25/23 12:00 Pulse Ox 90 L 04/25/23 12:00 FiO2 Intake & Output 04/24/23 04/25/23 04/25/23 18:59 06:59 18:59 Intake Total 360 100 Output Total 600 Balance 360 -600 100 Intake: IV 100 Oral 360 Output: Urine 600 Other: Voiding Method Diaper Diaper Diaper External Catheter External Catheter External Catheter # Bowel Movements 1 - Constitutional General appearance: Present: average body habitus, mild distress - EENT Eyes: Present: anicteric sclerae, EOMI ENT: Present: hearing grossly normal - Respiratory Details: resp even and unlabored at rest - Integumentary Integumentary: Present: normal - Neurologic Neurologic: Present: CNII-XII intact - Psychiatric Psychiatric Comment(s): Pt was very loud - Labs CBC & Chem 7: 04/25/23 07:56 04/25/23 07:56 Labs: Abnormal Lab Results - Last 24 Hours (Table) 04/25/23 04/25/23 Range/Units 07:56 07:56 Hgb 8.3 L (11.4-16.0) gm/dL Hct 28.3 L (34.0-46.0) % MCV 74.5 L (80.0-100.0) fL MCH 21.8 L (25.0-35.0) pg MCHC 29.2 L (31.0-37.0) g/dL RDW 18.7 H (11.5-15.5) % Chloride 109 H (98-107) mmol/L Assessment and Plan (1) Microcytic hypochromic anemia Current Visit: Yes Status: Chronic Priority: High Code(s): D50.9 - IRON DEFICIENCY ANEMIA, UNSPECIFIED SNOMED Code(s): 99658028 (2) B12 deficiency anemia Current Visit: Yes Status: Chronic Priority: High Code(s): D51.9 - VITAMIN B12 DEFICIENCY ANEMIA, UNSPECIFIED SNOMED Code(s): 15103695 Plan: Microcytic, hypochromic, B12 deficient anemia -Pt has received IV iron-3/4 infusions -She had EGD with Surgeon today -Recommended B12 injections but, pt was very upset, stating B12 injections "will kill me". It is listed as an allergy, so I removed orders for the same. It looks as though pt did receive 1 injection and is on oral B12 with no reported side effects or symptoms. Pt is severely deficient in B12 and this is likely contributing to anemia. Cont oral B12 as long as pt is tolerating -Would recommend CBC, B12 and iron study laboratory f/u for pt once out of the hospital. Supplement as needed.
[2023-04-25] MEDS: ATORVASTATIN 40 MG TAB PO SCH (20:33)
[2023-04-25] MEDS: LORATADINE 10 MG TAB PO SCH (20:33)
[2023-04-26 04:50] VITALS: TEMP 98.2
[2023-04-26] MEDS: SERTRALINE 50 MG TAB PO SCH (08:17)
[2023-04-26] MEDS: PANTOPRAZOLE 40 MG/10 ML VIAL IVP SCH (08:17)
[2023-04-26] MEDS: CYANOCOBALAMIN 500 MCG TAB PO SCH (08:17)
[2023-04-26] MEDS: ISOSORBIDE MONONITRATE ER 30 MG TAB.ER.24H PO SCH (08:17)
[2023-04-26] MEDS: METOPROLOL TARTRATE 12.5 MG TAB PO SCH (08:17)
[2023-04-26 08:26] VITALS: RESP 16
[2023-04-26 11:07] LABS: Anisocytosis Moderate; Basophils % (A) 1 %; Eosinophils # (A) 0.5 k/uL (0-0.7); Eosinophils % (A) 6 %; HCT 27.9 % (34.0-46.0); HGB 8.2 gm/dL (11.4-16.0); Hypochromasia Marked; Lymphocytes # (A) 0.9 k/uL (1.0-4.8); Lymphocytes % (A) 13 %; MCH 22.1 pg (25.0-35.0); MCHC 29.4 g/dL (31.0-37.0); MCV 75.2 fL (80.0-100.0); Mean Platelet Volume 8.1; Microcytosis Moderate; Monocytes # (A) 0.4 k/uL (0-1.0); Monocytes % (A) 5 %; Neutrophils # (A) 5.5 k/uL (1.3-7.7); Neutrophils % (A) 74 %; Platelet Count 451 k/uL (150-450); Poikilocytosis Marked; RDW 20.4 % (11.5-15.5); WBC 7.4 k/uL (3.8-10.6)
--- NOTE | 2023-04-26 12:24 | P.DS ---
Providers Date of admission: 04/24/23 05:50 Expected date of discharge: 04/26/23 Attending physician: Kenneth Richardson MD Consults: 04/23/23 00:51 Consult Physician Urgent Consulting Provider: Jeremias Scott Consult Reason/Comments: microcytic anemia Do you want consulting provider notified?: Yes 04/23/23 13:49 Consult Physician Urgent Consulting Provider: Fabricio Ochoa Consult Reason/Comments: anemia, epigastric tenderness Do you want consulting provider notified?: Yes 04/25/23 07:41 Consult Physician Routine Consulting Provider: Shemar Mcleod Consult Reason/Comments: anemia Do you want consulting provider notified?: Already Contacted Primary care physician: Karin Marin DO Hospital Course: Discharge diagnoses; Severe anemia present on admission, GI bleed Iron deficiency anemia Vitamin B12 deficiency Mild hypoxia with mild fever on admission Hypertension Hyperlipidemia Chronic heart failure History of CVA History of GERD Hospital course; This is a pleasant 83 years old female with multiple medical problems include Heart Failure, CVA/TIA, GERD/Reflux, Hyperlipidemia, Hypertension Patient lives as an prison resident at [facility] , patient states to me that at baseline she does not walk. 2 days ago she started having vomiting, she vomited her breakfast and dinner, she denies fresh blood in her vomitus but she says it looks like dark coffee. Also patient complaining of mild epigastric pain and tenderness. She denies using extra pain medication over the last week. She denies dizziness, no weakness or headache. No chest pain or dyspnea. No specific urinary complaints. No smoking or Acute alcohol or illicit drugs. Currently patient getting another unit of blood transfusion Patient is hemodynamically stable. Labs reviewed showing no leukocytosis, hemoglobin on admission was 5.5, after blood transfusion went up to 7.7 Platelet is elevated for 82. Rest of BMP and liver enzymes were unremarkable Lactic acid elevated at 3.3 and came down to 2.6. Occult blood in the stool is negative. EGD on 08/31/22 showing large hiatal hernia with no evidence of esophagitis or Mitchell's esophagus, mild antral gastritis 04/24/2023 Patient today is mildly lethargic, she denies specific symptoms no chest pain or dyspnea. No abdominal or epigastric pain, tenderness is less pronounced. She is hemodynamically stable, earlier oxygen saturation was 89% on room air. Fever present on admission about 100 is resolved which could be reactive, rule out infection. Because of this recurrent to repeat chest x-ray today. She remains on normal saline 50 mL per hour, her lactic acid is still 2.4. It is improving slowly and gradually. Hemoglobin improved to 8.2. Rest of labs are unremarkable. She is on IV Protonix twice a day and IV iron. She is also normal saline 50 mL/h which may be increased right leg alone. Occult blood in the stool is negative. 04/25. Patient seen and examined. Lab work done WBC 8.9, hemoglobin 8.3, platelet count 410, sodium 139 potassium 4, BUN 9, creatinine 0.67 Denies any blood in the stools. Currently nothing by mouth going for EGD today 04/26. Patient seen and examined. Hemoglobin remained stable. Status post EGD showing antral gastritis and hiatal hernia and esophagitis. Patient keen to go home. Patient refusing vitamin B12 injections which were recommended by hematology oncology PHYSICAL EXAMINATION: GENERAL: The patient is alert and oriented x3, not in any acute distress. Well developed, well nourished. HEENT: Pupils are round and equally reacting to light. EOMI. No scleral icterus. No conjunctival pallor. Normocephalic, atraumatic. No pharyngeal erythema. No thyromegaly. CARDIOVASCULAR: S1 and S2 present. No murmurs, rubs, or gallops. PULMONARY: Chest is clear to auscultation, no wheezing or crackles. ABDOMEN: Soft, nontender, nondistended, normoactive bowel sounds. No palpable organomegaly. MUSCULOSKELETAL: No joint swelling or deformity. EXTREMITIES: No cyanosis, clubbing, or pedal edema. NEUROLOGICAL: Gross neurological examination did not reveal any focal deficits. SKIN: No rashes. Dictation was produced using [employer] dictation software. please excuse any grammatical, word or spelling errors. Patient Condition at Discharge: Stable Plan - Discharge Summary Discharge Rx Participant: No New Discharge Prescriptions: New Cyanocobalamin [Vitamin B-12] 500 mcg PO DAILY 30 Days #30 tab Ferrous Sulfate [Feosol] 325 mg PO DAILY 30 Days #30 tab Continue Potassium Chloride ER [K-Dur 20] 20 meq PO DAILY Isosorbide Mononitrate ER [Imdur] 30 mg PO DAILY Clopidogrel [Plavix] 75 mg PO HS Aspirin EC [Ecotrin Low Dose] 81 mg PO DAILY hydroCHLOROthiazide 12.5 mg PO DAILY Acetaminophen [Tylenol 8 Hour] 650 mg PO BID Loperamide [Imodium] 2 - 4 mg PO TID PRN MDD 8 mg PRN Reason: Diarrhea Sertraline HCl [Zoloft] 50 mg PO DAILY Furosemide [Lasix] 20 mg PO DAILY Atorvastatin Calcium [Lipitor] 40 mg PO DAILY@1999 Meclizine [Antivert] 12.5 mg PO TID@0700,1300,1900 Pantoprazole [Protonix] 40 mg PO DAILY Metoprolol Tartrate [Lopressor] 12.5 mg PO BID Levocetirizine Dihydrochloride 5 mg PO HS@1999 Calcium Carbonate 1,000 mg PO ACHS PRN PRN Reason: gerd Discharge Medication List Aspirin EC [Ecotrin Low Dose] 81 mg PO DAILY 04/16/21 [History] Atorvastatin Calcium [Lipitor] 40 mg PO DAILY@199904/16/21 [History] Clopidogrel [Plavix] 75 mg PO HS 04/16/21 [History] Furosemide [Lasix] 20 mg PO DAILY 04/16/21 [History] Isosorbide Mononitrate ER [Imdur] 30 mg PO DAILY 04/16/21 [History] Potassium Chloride ER [K-Dur 20] 20 meq PO DAILY 04/16/21 [History] Sertraline HCl [Zoloft] 50 mg PO DAILY 04/16/21 [History] Acetaminophen [Tylenol 8 Hour] 650 mg PO BID 08/26/22 [History] hydroCHLOROthiazide 12.5 mg PO DAILY 08/26/22 [History] Calcium Carbonate 1,000 mg PO ACHS PRN 04/23/23 [History] Levocetirizine Dihydrochloride 5 mg PO HS@199904/23/23 [History] Loperamide [Imodium] 2 - 4 mg PO TID PRN MDD 8 mg 04/23/23 [History] Meclizine [Antivert] 12.5 mg PO TID@0700,1300,1900 04/23/23 [History] Metoprolol Tartrate [Lopressor] 12.5 mg PO BID 04/23/23 [History] Pantoprazole [Protonix] 40 mg PO DAILY 04/23/23 [History] Cyanocobalamin [Vitamin B-12] 500 mcg PO DAILY 30 Days #30 tab 04/26/23 [Rx] Ferrous Sulfate [Feosol] 325 mg PO DAILY 30 Days #30 tab 04/26/23 [Rx] Follow up Appointment(s)/Referral(s): None,Stated [REFERRING] - 1-2 days Jeremias Scott MD [STAFF PHYSICIAN] - 06/22/23 2:45 pm Discharge Disposition: TRANSFER TO SNF/ECF
[2023-04-26] MEDS: SODIUM FERRIC GLUCONAT-SUCROSE 125 MG in SODIUM CHLORIDE 0.9% 100 ML IVPB SCH (12:51)
--- NOTE | 2023-04-26 13:45 | P.PN ---
Subjective Progress Note Date: 04/26/23 CHIEF COMPLAINT: Anemia HISTORY OF PRESENT ILLNESS: Patient is status post EGD revealing antral gastritis, hiatal hernia and esophagitis. She denies any abdominal pain. Denies any nausea or vomiting. She is tolerating diet. Vital stable. Hemoglobin stable at 8.2. Patient being discharged today. PHYSICAL EXAM: VITAL SIGNS: Reviewed. GENERAL: Well-developed in no acute distress. ABDOMEN: Soft. Nondistended. Nontender. ASSESSMENT: 1. Anemia 2. EGD showing antral gastritis, hiatal hernia and esophagitis PLAN: -Continue Protonix -Recommend outpatient colonoscopy Physician [employer] note has been reviewed by physician. Signing provider agrees with the documented findings, assessment, and plan of care. Objective - Vital Signs Vital signs: Vital Signs Temp 98.2 F 04/26/23 04:00 Pulse 66 04/26/23 08:00 Resp 16 04/26/23 08:00 BP 133/61 04/26/23 08:00 Pulse Ox 92 L 04/26/23 08:00 FiO2 Intake & Output 04/25/23 04/26/23 04/26/23 18:59 06:59 18:59 Intake Total 950 120 Output Total 500 Balance 450 120 Intake: IV 100 Intake, IV Titration 500 Amount Sodium Chloride 0.9% 1, 400 000 ml @ 50 mls/hr IV . Q20H [facility] Rx#:[id number] Sodium Ferric Gluconat- 100 Sucrose 125 mg In Sodium Chloride 0.9% 100 ml @ 100 mls/hr IVPB DAILY [facility] Rx#:[id number] Oral 350 120 Output: Urine 500 Other: Voiding Method Diaper Diaper Diaper External Catheter External Catheter External Catheter # Voids 1 # Bowel Movements 1 - Labs CBC & Chem 7: 04/26/23 10:45 04/25/23 07:56 Labs: Abnormal Lab Results - Last 24 Hours (Table) 04/26/23 Range/Units 10:45 RBC 3.70 L (3.80-5.40) m/uL Hgb 8.2 L (11.4-16.0) gm/dL Hct 27.9 L (34.0-46.0) % MCV 75.2 L (80.0-100.0) fL MCH 22.1 L (25.0-35.0) pg MCHC 29.4 L (31.0-37.0) g/dL RDW 20.4 H (11.5-15.5) % Plt Count 451 H (150-450) k/uL Lymphocytes # 0.9 L (1.0-4.8) k/uL
[2023-04-26 17:02] VITALS: BP 122/59; PULSE 68
--- NOTE | 2023-04-26 23:20 | P.PN ---
Subjective Progress Note Date: 04/26/23 Principal diagnosis: Iron and B12 deficiency, microcytic, hypochromic anemia In f/u today pt in chair, no acute c/o. Objective - Vital Signs Vital signs: Vital Signs Temp 98.2 F 04/26/23 04:00 Pulse 67 04/26/23 12:00 Resp 16 04/26/23 12:00 BP 109/62 04/26/23 12:00 Pulse Ox 93 L 04/26/23 12:00 FiO2 Intake & Output 04/25/23 04/26/23 04/26/23 18:59 06:59 18:59 Intake Total 950 120 Output Total 500 200 Balance 450 -80 Intake: IV 100 Intake, IV Titration 500 Amount Sodium Chloride 0.9% 1, 400 000 ml @ 50 mls/hr IV . Q20H [facility] Rx#:[id number] Sodium Ferric Gluconat- 100 Sucrose 125 mg In Sodium Chloride 0.9% 100 ml @ 100 mls/hr IVPB DAILY [facility] Rx#:[id number] Oral 350 120 Output: Urine 500 200 Other: Voiding Method Diaper Diaper Diaper External Catheter External Catheter External Catheter # Voids 1 1 # Bowel Movements 1 - Constitutional General appearance: Present: cooperative, no acute distress, obese - EENT Eyes: Present: anicteric sclerae, EOMI ENT: Present: hearing grossly normal - Respiratory Details: resp even and unlabored at rest - Integumentary Integumentary: Present: normal - Musculoskeletal Musculoskeletal: Present: strength equal bilaterally - Psychiatric Psychiatric Comment(s): irritable Psychiatric: Present: A&O x's 3 - Labs CBC & Chem 7: 04/26/23 10:45 04/25/23 07:56 Labs: Abnormal Lab Results - Last 24 Hours (Table) 04/26/23 Range/Units 10:45 RBC 3.70 L (3.80-5.40) m/uL Hgb 8.2 L (11.4-16.0) gm/dL Hct 27.9 L (34.0-46.0) % MCV 75.2 L (80.0-100.0) fL MCH 22.1 L (25.0-35.0) pg MCHC 29.4 L (31.0-37.0) g/dL RDW 20.4 H (11.5-15.5) % Plt Count 451 H (150-450) k/uL Lymphocytes # 0.9 L (1.0-4.8) k/uL Assessment and Plan (1) Microcytic hypochromic anemia Status: Chronic Priority: High Code(s): D50.9 - IRON DEFICIENCY ANEMIA, UNSPECIFIED SNOMED Code(s): 76840212 (2) B12 deficiency anemia Status: Chronic Priority: High Code(s): D51.9 - VITAMIN B12 DEFICIENCY A NEMIA, UNSPECIFIED SNOMED Code(s): 87799161 Plan: Microcytic, hypochromic, B12 deficient anemia -Pt has received IV iron-4 infusions -She had EGD with Surgeon, biopsies pending -Pt is severely deficient in B12 and this is likely contributing to anemia. She reports allergy to B12 injections. Cont oral B12 as long as pt is tolerating -Would recommend CBC, B12 and iron study laboratory f/u for pt once out of the hospital. Supplement as needed.
--- NOTE | 2023-04-29 14:56 | CDI ---
Documentation Clarification Form Date: 04/29/2023 02:46:46 PM From: Kaylee Bills RN, CCDS Email: [email or web address] Admit Date: 04/24/2023 05:50:00 AM Patient Name: Veronika Chu Visit Number: [id number] Discharge Date: 04/26/2023 07:55:00 PM ATTENTION: The Clinical Documentation Specialists (CDI) and [facility] Coding Staff appreciate your assistance in clarifying documentation. Please respond to the clarification below the line at the bottom and electronically sign. The CDI & [facility] Coding staff will review the response and follow-up if needed. Please note: Queries are made part of the Legal Health Record. If you have any questions, please contact the author of this message via ITS. Dr. Cooper E Sheet Your patient had low hemoglobin/hematocrit levels. Please clarify if there is an additional diagnosis and/or clinical significance related to these lab values. History/Risk Factors: CHF, GERD, HLD and HTN. Presented with vomiting. Admitted with severe anemia and GI bleed. Clinical indicators: 04/22 Hgb: 5.5 04/22 Hct: 19.5 04/22 Iron: 9 H&P: "she denies fresh blood in her vomitus but she says it looks like dark coffee." EGD: antral gastritis, hiatal hernia and esophagitis Discharge summary: Severe anemia present on admission, GI bleed, and Iron deficiency anemia. Treatment: 2 units PRBC's; IV Ferric gluconate 125mg daily 04/23-04/26; 0.9 NS IV bolus on 04/23; IV Protonix 40mg BID 04/23-04/26; monitor labs Is there an additional diagnosis and/or clinical significance related to the above lab result/information? [ ] Acute blood loss anemia [ ] Acute on chronic blood loss anemia [ ] Iron deficiency anemia only [ ] Other, please specify Acute blood loss anemia MTDD
--- NOTE | 2023-05-05 11:21 | CDI ---
Documentation Clarification Form Date: 05/05/2023 10:40:44 AM From: Marylou Fontenot RN, CCDS Admit Date: 04/24/2023 05:50:00 AM Patient Name: Veronika Chu Visit Number: [id number] Discharge Date: 04/26/2023 07:55:00 PM ATTENTION: The Clinical Documentation Specialists (CDI) and [facility] Coding Staff appreciate your assistance in clarifying documentation. Please respond to the clarification below the line at the bottom and electronically sign. The CDI & [facility] Coding staff will review the response and follow-up if needed. Please note: Queries are made part of the Legal Health Record. If you have any questions, please contact the author of this message via ITS. Dr. Osman Gordon The patients principal diagnosis the diagnosis that was chiefly responsible for the admission - has not been clearly identified and clarification is requested. The patient presented with Low Hemoglobin. History/Risk factors: States that she will intermittently have some dark stools however nothing recently. Clinical Indicators: 83-year-old female presents complaining of some lightheadedness. States that she will intermittently have some dark stools however nothing recently. She is on iron Supplementation and Plavix. 04/22 VS: 119/72 68 18 100.2 98% RA 04/22 Labs: HGB 5.5 HCT 19.5, Stool Occult Blood-Negative 04/22 Iron 9 TIBC 420 % saturation 2.14 (L) Ferritin 4.6 (L) 04/23 H/P: 2 days ago she started having vomiting, she vomited her breakfast and dinner, she denies fresh blood in her vomitus but she says it looks like dark coffee. EGD on 08/31/22 showing large hiatal hernia with no evidence of esophagitis or Mitchell's esophagus, mild antral gastritis Severe anemia present on admission, GI bleed still possibility 04/25 Oncology consult: Prior to admission, patient reports melena and hematemesis. Last EGD approx. 1 yr. ago, with no acute bleed noted. Iron studies revealed significant iron deficiency anemia with ferritin 4.6, iron saturation 2.1%. Folate and B12 pending. Will obtain rest of anemia workup. -IV iron started x 4 doses Treatment: 04/25 EGD: Antral gastritis, Esophagitis, Hiatal hernia Protonix 40 MG IVP BID 04/23-04/26 Ferric Sodium Gluconate 125 MG IVPB Daily x4 doses 04/23-04/26 Transfuse 2 Units PRBS Vitamin B-12 500 mcg PO DAILY 04/25-04/26 In your professional opinion, can you please clarify which diagnosis, after study, was the reason chiefly responsible for the admission? [ x ] Anemia due to GI Bleed [x ] Iron deficiency anemia [ ] Other, please specify [ ] Unable to determine (Template Last Revised: August 2020) MTDD
== END 2023-04-26 19:55 | DRG 811 ==
LOC: EC 22:49 → 3SCARD 04-23 00:51 → OBSVTOIN 04-24 05:50
PROVIDERS: ADMIT Internal Medicine; ATTEND Internal Medicine
PROC: 30233N1 Transfusion of Nonautologous Red Blood Cells into Peripheral Vein, Percutaneous Approach (ICD-10-PCS; 2023-04-23)
PROC: 0DB58ZX Excision of Esophagus, Via Natural or Artificial Opening Endoscopic, Diagnostic (ICD-10-PCS; 2023-04-25)
PROC: 0DB78ZX Excision of Stomach, Pylorus, Via Natural or Artificial Opening Endoscopic, Diagnostic (ICD-10-PCS; principal; 2023-04-25 08:20)
DX: D62 Acute posthemorrhagic anemia (principal); K21.01 Gastro-esophageal reflux disease with esophagitis, with bleeding; K29.51 Unspecified chronic gastritis with bleeding; I11.0 Hypertensive heart disease with heart failure; I50.9 Heart failure, unspecified; E03.9 Hypothyroidism, unspecified; E53.8 Deficiency of other specified B group vitamins; E78.5 Hyperlipidemia, unspecified; K44.9 Diaphragmatic hernia without obstruction or gangrene; R09.02 Hypoxemia; W19.XXXA Unspecified fall, initial encounter; Y92.129 Unspecified place in nursing home as the place of occurrence of the external cause; Z79.02 Long term (current) use of antithrombotics/antiplatelets; Z79.82 Long term (current) use of aspirin; Z79.899 Other long term (current) drug therapy; Z86.73 Personal history of transient ischemic attack (TIA), and cerebral infarction without residual deficits; Z88.8 Allergy status to other drugs, medicaments and biological substances; Z88.0 Allergy status to penicillin; Z87.891 Personal history of nicotine dependence
CPT/HCPCS: 36415; 36430; 43239; 71045; 80048; 80053; 81001; 82272; 82525; 82607; 82728; 82746; 83540; 83550; 83605; 83735; 83921; 84484; 85025; 85027; 85610; 85730; 86850; 86900; 86901; 86920; 88305; 96365; 96375; 99285

== ENCOUNTER 2023-10-26 10:29 | Day surgery (SDC) | payer MEDICARE, OTHER ==
[2023-10-21 13:24] VITALS: BMI 31.3
[~2023-10-26 10:29] MED LIST changes: -LACTATED RINGERS 1,000 ML IV SCH; +LIDOCAINE 1% (10MG/ML) FOR IV START INTRADERMA PRN
[2023-10-26] MEDS: LACTATED RINGERS 1,000 ML IV SCH (11:00)
[2023-10-26 11:37] VITALS: RESP 16; TEMP 97.5
[2023-10-26] MEDS ORDERED: PROPOFOL 10 MG/ML 20 ML VIAL IV ONE (12:25)
--- NOTE | 2023-10-26 12:46 | P.PCN ---
Date of Procedure: 10/26/23 Procedure(s) Performed: BRIEF HISTORY: Patient is a 83-year-old pleasant white female scheduled for an elective colonoscopy as a part of iron deficiency Neli. Recently she was noted to have a hemoglobin of 5.5 g/dL and received treatments of PRBC transfusion when she was admitted in June 2023. Last EGD April 2020 revealed moderate size hiatal hernia. Her last colonoscopy was several years ago. PROCEDURE PERFORMED: Colonoscopy with snare polypectomy. PREOPERATIVE DIAGNOSIS: Severe iron deficiency anemia. IV sedation per Anesthesia. PROCEDURE: After informed consent was obtained, the patient, was brought into the endoscopy unit. IV sedation was administered by Anesthesia under continuous monitoring. Digital rectal examination was normal. Initially the Olympus CF-160 flexible video colonoscope was then inserted in the rectum, gradually advanced into the cecum without any difficulty. Careful examination was performed as the scope was gradually being withdrawn. Ileocecal valve and the appendiceal orifice were visualized and appeared normal. Prep was excellent. Mucosa of the cecum, appeared normal. The ascending colon there was a 1 cm broad-based polyp removed by snare polypectomy. Rest of the ascending colon, transverse colon, descending colon, sigmoid colon, and rectum appeared normal. Moderate sigmoid diverticulosis. Retroflexion was performed in the rectum and no lesions were seen. The patient tolerated the procedure well. IMPRESSION: 1 cm broad-based descending colon polyp status post polypectomy Moderate sigmoid diverticulosis RECOMMENDATIONS: Findings of this examination were discussed with the patient as well as her family.. She was advised to follow-up with the biopsy results. And continue with a high-fiber diet and fiber supplements on a regular basis. Follow-up in the office in 1 month
[2023-10-26 13:34] VITALS: BP 123/70; PULSE 73
== END 2023-10-26 13:59 | disposition home or self-care (01) ==
LOC: ORWHC2ENDO 10:29
PROVIDERS: ATTEND Internal Medicine Gastroenterology
DX: D12.2 Benign neoplasm of ascending colon (principal); K57.30 Diverticulosis of large intestine without perforation or abscess without bleeding; D50.9 Iron deficiency anemia, unspecified; I11.0 Hypertensive heart disease with heart failure; E78.5 Hyperlipidemia, unspecified; Z86.73 Personal history of transient ischemic attack (TIA), and cerebral infarction without residual deficits; Z79.899 Other long term (current) drug therapy; Z95.0 Presence of cardiac pacemaker; Z79.02 Long term (current) use of antithrombotics/antiplatelets; Z88.0 Allergy status to penicillin; Z88.8 Allergy status to other drugs, medicaments and biological substances
CPT/HCPCS: 88305; 45385; J2704

== ENCOUNTER → 2024-01-02 | Outpatient (CLI) | payer MEDICARE, OTHER ==
--- NOTE | 2024-01-02 18:16 | CA ---
Transthoracic Echo Report Name: Veronika Chu Age: 83 Gender: F : 1940 Exam Date: 01/02/2024 13:46 Exam Location: [facility] Ht (in): 68 Wt (lb): 196 Ordering Physician: Heriberto Sanon DO Attending/Referring Phys: Tiara Strong Line Installer Trolley Edilia Cho RDCS Procedure CPT: Indications: A FIB I48.91 Cardiac Hx: Technical Quality: Poor Contrast 1: Total Dose (mL): Contrast 2: Total Dose (mL): MEASUREMENTS (Male / Female) Normal Values 2D ECHO LV Diastolic Diameter PLAX 2.6 cm 4.2 - 5.9 / 3.9 - 5.3 cm LV Systolic Diameter PLAX 1.9 cm IVS Diastolic Thickness 1.5 cm 0.6 - 1.0 / 0.6 - 0.9 cm LVPW Diastolic Thickness 1.3 cm 0.6 - 1.0 / 0.6 - 0.9 cm LV Relative Wall Thickness 1.1 LVOT Diameter 2.1 cm LV Diastolic Volume MOD BP 91.4 cm??? 67 - 155 / 56 - 104 cm??? LV Systolic Volume MOD BP 37.4 cm??? 22 - 58 / 19 - 49 cm??? LV Ejection Fraction MOD BP 59.1 % >= 55 % LV Cardiac Index MOD BP 1577.2 cm???/min???m??? LV Diastolic Volume MOD 4C 96.8 cm??? LV Systolic Volume MOD 4C 32.6 cm??? LV Ejection Fraction MOD 4C 66.3 % LV Cardiac Index MOD 4C 1875.2 cm???/min???m??? LV Diastolic Length 4C 7.2 cm LV Systolic Length 4C 5.4 cm LV Diastolic Volume MOD 2C 85.4 cm??? LV Systolic Volume MOD 2C 36.5 cm??? LV Ejection Fraction MOD 2C 57.3 % LV Cardiac Index MOD 2C 1428.6 cm???/min???m??? LV Diastolic Length 2C 7.1 cm LV Systolic Length 2C 6.7 cm LA Volume 120.4 cm??? 18 - 58 / 22 - 52 cm??? LA Volume Index 57.6 cm???/m??? 16 - 28 cm???/m??? Ascending Aorta Diameter 3.4 cm DOPPLER AV Peak Velocity 107.7 cm/s AV Peak Gradient 4.6 mmHg AV Mean Velocity 76.1 cm/s AV Mean Gradient 2.6 mmHg AV Velocity Time Integral 22.7 cm LVOT Peak Velocity 87.3 cm/s LVOT Peak Gradient 3.0 mmHg LVOT Velocity Time Integral 19.3 cm LVOT Stroke Volume 64.0 cm??? LVOT Stroke Volume Index 31.6 ml/m??? LVOT Cardiac Index 1867.4 cm???/min???m??? AV Area Cont Eq vti 2.8 cm??? AV Area Cont Eq pk 2.7 cm??? MV Area PHT 5.1 cm??? Mitral E Point Velocity 98.9 cm/s Mitral A Point Velocity 30.7 cm/s Mitral E to A Ratio 3.2 MV Deceleration Time 149.1 ms TR Peak Velocity 288.2 cm/s TR Peak Gradient 33.2 mmHg PV Peak Velocity 57.6 cm/s PV Peak Gradient 1.3 mmHg FINDINGS Left Ventricle Left ventricular ejection fraction is estimated at 60 %. Moderately increased septal wall thickness. Mildly increased posterior wall thickness. Left ventricular cavity size normal. No obvious regional wall motion abnormalities. Right Ventricle Right ventricle not well visualized. Right Atrium Right atrial dilatation. Catheter/pacemaker wire in the right atrial cavity. Left Atrium Severely increased left atrial volume. Moderately increased left atrial area. Mitral Valve Structurally normal mitral valve. No evidence for mitral valve prolapse. No mitral stenosis. Mild mitral regurgitation. Aortic Valve Trileaflet aortic valve. No aortic valve stenosis or regurgitation. Tricuspid Valve Structurally normal tricuspid valve. No tricuspid stenosis. Mild tricuspid regurgitation. Pulmonic Valve Pulmonic valve not well visualized. No pulmonic stenosis. Trace pulmonic regurgitation. Pericardium No pericardial effusion. Aorta Normal size aortic root and proximal ascending aorta. CONCLUSIONS Biatrial enlargement Preserved LV systolic function with LVH RV enlargement Previewed by: Dr. Cem Harrison MD (Electronically Signed) Final Date: 02 January 2024 18:15
== END | disposition home or self-care (01) ==
LOC: RADECHMAIN 13:26
PROVIDERS: ATTEND Internal Medicine
DX: I48.91 Unspecified atrial fibrillation (principal); I51.7 Cardiomegaly
CPT/HCPCS: 93306

== ENCOUNTER 2024-04-04 01:01 | Emergency (ER) | payer MEDICARE, OTHER ==
[2024-04-04 01:09] VITALS: RESP 16
--- NOTE | 2024-04-04 01:26 | XR ---
EXAMINATION TYPE: XR wrist complete LT DATE OF EXAM: 04/04/2024 CLINICAL HISTORY: Fall injury with pain TECHNIQUE: Frontal, lateral and oblique images of the left wrist are obtained. COMPARISON: None FINDINGS: There is no acute fracture/dislocation evident in the left wrist. Osseous structures are d emineralized. Moderate triscaphe joint degenerative change is present. A peripheral IV overlies the d istal forearm. IMPRESSION: There is no acute fracture or dislocation in the left wrist. [facility], , 04/04/2024 1:24 AM
--- NOTE | 2024-04-04 01:33 | CT ---
EXAMINATION TYPE: CT brain cspine wo con DATE OF EXAM: 04/04/2024 COMPARISON: Prior trauma CT January 08, 2023 HISTORY: Fall injury with pain Automated Exposure Control for Dose Reduction was Utilized. TECHNIQUE: CT scan of the head and cervical spine are performed without contrast. FINDINGS: There is no acute intracranial hemorrhage or midline shift identified. Moderate ventricul ar and sulcal prominence is redemonstrated. Moderate low-attenuation in the periventricular white mat ter is redemonstrated. Calvarium is intact. There is new moderate sized hiatal acute left frontal sca lp hematoma. Bilateral aphakia is redemonstrated. The paranasal sinuses remain clear. Cervical spine is visualized in its entirety from C1 through upper thoracic levels and demonstrates s light grade 1 retrolisthesis C4 on C5 and C5 on C6 without evidence of acute fracture or dislocation. Prevertebral soft tissue appears within normal limits. The C1-C2 articulation is unremarkable on t he coronal images. Vertebral body heights are maintained. Mild disc space at C4-C5 level is present. Spinal canal is grossly preserved. Review of axial images demonstrates multilevel uncovertebral face t degenerative changes bilaterally. There is partially calcified left thyroid nodule redemonstrated. Correlate clinically. Lung apices are clear without pneumothorax IMPRESSION: 1. There is no acute fracture or dislocation evident in the cervical spine. 2. No acute intracranial hemorrhage or shift is seen. New moderate sized superior acute left frontal scalp hematoma. [facility], , 04/04/2024 1:30 AM
--- NOTE | 2024-04-04 02:01 | ED ---
Fall HPI - General Chief Complaint: Fall Stated Complaint: Fall Time Seen by Provider: 04/04/24 01:10 Source: EMS Mode of arrival: EMS - History of Present Illness Initial Comments: 84-year-old female brought in from [facility] after fall this evening. Patient fell while getting out of bed and into her chair. She denies any loss of consciousness. She takes Eliquis. She does have a hematoma to the left side of the forehead. She is complaining of head pain and left wrist pain. There is some swelling to the left wrist. She also has some abrasions to the fingers which were wrapped by EMS. She has full range of motion of the fingers and wrist. No nausea or vomiting. No chest pain, difficulty breathing, abdominal pain. No vision or hearing changes. No numbness or tingling. - Related Data Home Medications Medication Instructions Recorded Confirmed Aspirin EC [Ecotrin Low Dose] 81 mg PO DAILY 04/16/21 10/26/23 Atorvastatin Calcium [Lipitor] 40 mg PO DAILY@199904/16/21 10/26/23 Clopidogrel [Plavix] 75 mg PO HS 04/16/21 10/26/23 Furosemide [Lasix] 20 mg PO DAILY 04/16/21 10/26/23 Isosorbide Mononitrate ER [Imdur] 30 mg PO DAILY 04/16/21 10/26/23 Potassium Chloride ER [K-Dur 20] 20 meq PO DAILY 04/16/21 10/26/23 Sertraline HCl [Zoloft] 50 mg PO DAILY 04/16/21 10/26/23 Acetaminophen [Tylenol 8 Hour] 650 mg PO BID 08/26/22 10/26/23 hydroCHLOROthiazide 12.5 mg PO DAILY 08/26/22 10/26/23 Calcium Carbonate 1,000 mg PO ACHS PRN 04/23/23 10/26/23 Levocetirizine Dihydrochloride 5 mg PO HS@199904/23/23 10/26/23 Loperamide [Imodium] 2 - 4 mg PO TID PRN MDD 8 mg 04/23/23 10/26/23 Meclizine [Antivert] 12.5 mg PO DAILY PRN 04/23/23 10/26/23 Metoprolol Tartrate [Lopressor] 12.5 mg PO BID 04/23/23 10/26/23 Pantoprazole [Protonix] 40 mg PO DAILY 04/23/23 10/26/23 Melatonin 3 mg PO HS 10/21/23 10/26/23 Previous Rx's Medication Instructions Recorded Ferrous Sulfate [Feosol] 325 mg PO DAILY 30 Days #30 tab 04/26/23 Allergies Allergy/AdvReac Type Severity Reaction Status Date / Time bee venom protein (honey bee) Allergy Rash/Hives Verified 04/04/24 01:09 Penicillins Allergy Rash/Hives Verified 04/04/24 01:09 vitamin b 12 Allergy Anaphylaxis Uncoded 10/26/23 10:54 Review of Systems ROS Statement: Those systems with pertinent positive or pertinent negative responses have been documented in the HPI. ROS Other: All systems not noted in ROS Statement are negative. Past Medical History Past Medical History: Heart Failure, CVA/TIA, GERD/Reflux, Hyperlipidemia, Hypertension Additional Past Medical History / Comment(s): weakness History of Any Multi-Drug Resistant Organisms: None Reported Past Surgical History: Pacemaker Past Anesthesia/Blood Transfusion Reactions: No Reported Reaction Additional Past Anesthesia/Blood Transfusion Reaction / Comment(s): PER [facility] STAFF Type of Cardiac Device: Unknown Device Placement Date:: UNK Past Psychological History: Depression Smoking Status: Former smoker - Past Family History Father Family Medical History: Cancer Brother(s) Additional Family Medical History / Comment(s): suicide General Exam General appearance: alert, in no apparent distress Expanded Head exam: Present: hematoma (L forehead) Eye exam: Present: normal appearance, EOMI Neck exam: Present: normal inspection (In c-collar) Respiratory exam: Present: normal lung sounds bilaterally. Absent: respiratory distress, wheezes, rales, rhonchi, stridor Cardiovascular Exam: Present: regular rate, normal rhythm, normal heart sounds. Absent: systolic murmur, diastolic murmur, rubs, gallop, clicks GI/Abdominal exam: Present: soft. Absent: distended, tenderness, guarding, rebound, rigid Left Hand Wrist exam: Present: full ROM, tenderness, swelling Neurological exam: Present: alert, oriented X3 Expanded Eye Response: (4) open spontaneously Motor Response: (6) obeys commands Verbal Response: (5) oriented [place] Total: 15 Skin exam: Present: warm, dry Course Vital Signs 04/04/24 04/04/24 01:05 02:21 Temperature 99.0 F 98.8 F Pulse Rate 80 79 Respiratory 16 16 Rate Blood Pressure 153/108 132/81 O2 Sat by Pulse 95 98 Oximetry Medical Decision Making - Medical Decision Making Was pt. sent in by a medical professional or institution (, PA, LAP MACHINE TENDER, urgent care, hospital, or fci...) When possible be specific @ -No Did you speak to anyone other than the patient for history (EMS, parent, family, police, friend...)? What history was obtained from this source @ -No Did you review nursing and triage notes (agree or disagree)? Why? @ -I reviewed and agree with nursing and triage notes Were old charts reviewed (outside hosp., previous admission, EMS record, old EKG, old radiological studies, urgent care reports/EKG's, fci records)? Report findings @ -No old charts were reviewed Differential Diagnosis (chest pain, altered mental status, abdominal pain women, abdominal pain men, vaginal bleeding, weakness, fever, dyspnea, syncope, headache, dizziness, GI bleed, back pain, seizure, CVA, palpatations, mental health, musculoskeletal)? @ -Differential includes uncomplicated head injury, concussion, fracture, hemorrhage, this is not an all-inclusive list EKG interpreted by me (3pts min.). @ -As above X-rays interpreted by me (1pt min.). @ -X-ray shows no acute fracture or dislocation CT interpreted by me (1pt min.). @ -CT shows no acute fracture or dislocation noted in the cervical spine. No acute intracranial hemorrhage or shift is seen. New moderate-sized superior acute left frontal scalp hematoma U/S interpreted by me (1pt. min.). @ -None done What testing was considered but not performed or refused? (CT, X-rays, U/S, labs)? Why? @ -None What meds were considered but not given or refused? Why? @ -None Did you discuss the management of the patient with other professionals (professionals i.e. , [employer], LAP MACHINE TENDER, lab, RT, psych nurse, social media project manager, racebook writer, teacher, unclaimed property officer, piano case and bench assembler)? Give summary @ -No Was smoking cessation discussed for >3mins.? @ -No Was critical care preformed (if so, how long)? @ -No Were there social determinants of health that impacted care today? How? (Homelessness, low income, unemployed, alcoholism, drug addiction, transportation, low edu. Level, literacy, decrease access to med. care, [facility], rehab)? @ -No Was there de-escalation of care discussed even if they declined (Discuss DNR or withdrawal of care, Hospice)? DNR status @ -No What co-morbidities impacted this encounter? (DM, HTN, Smoking, COPD, CAD, Cancer, CVA, ARF, Chemo, Hep., AIDS, mental health diagnosis, sleep apnea, morbid obesity)? @ -None Was patient admitted / discharged? Hospital course, mention meds given and route, prescriptions, significant lab abnormalities, going to OR and other pertinent info. @ -84-year-old female [facility] fall when getting out of her bed and into her chair. Hematoma to forehead. She has some pain in her wrist as well. She is placed in a c-collar by EMS. GCS is 15. No acute intracranial process or cervical spine fracture on CT. X-ray shows no fracture or dislocation. C-collar is removed. Patient is resting showing no acute signs of distress. Will be discharged back to [facility]. Follow-up with PCP. Report back to ER with any new or worsening symptoms. Discussed return parameters and answered all questions. Patient conveyed verbal understanding and agreed to the plan. I discussed this case in detail with my attending Dr. Merino Undiagnosed new problem with uncertain prognosis? @ -No Drug Therapy requiring intensive monitoring for toxicity (Heparin, Nitro, Insulin, Cardizem)? @ -No Were any procedures done? @ -No Diagnosis/symptom? @ -Head injury, scalp hematoma Acute, or Chronic, or Acute on Chronic? @ -Acute Uncomplicated (without systemic symptoms) or Complicated (systemic symptoms)? @ -Uncomplicated Side effects of treatment? @ -No Exacerbation, Progression, or Severe Exacerbation? @ -No Poses a threat to life or bodily function? How? (Chest pain, [place], [place], pneumonia, PE, COPD, DKA, ARF, appy, cholecystitis, CVA, Diverticulitis, Homicidal, Suicidal, threat to staff... and all critical care pts) @ -Unlikely Disposition Clinical Impression: Fall, Head injury Disposition: HOME SELF-CARE Condition: Good Instructions (If sedation given, give patient instructions): Head Injury (ED) Additional Instructions: Follow-up with PCP. Report back to ER with any new or worsening symptoms. Is patient prescribed a controlled substance at d/c from ED?: No Referrals: Karin Marin DO [Primary Care Provider] - 1-2 days Time of Disposition: 01:59
[2024-04-04 02:22] VITALS: BP 132/81; PULSE 79; TEMP 98.8
[2024-04-04] MEDS: ACETAMINOPHEN TAB 500 MG TAB PO STA (04:28)
== END 2024-04-04 08:45 | disposition home or self-care (01) ==
LOC: EC 01:01
CPT/HCPCS: 70450; 72125; 99284

== ENCOUNTER 2024-09-01 08:54 | Emergency (ER) | payer MEDICARE, OTHER ==
[2024-09-01 09:01] VITALS: RESP 17; TEMP 97.9
--- NOTE | 2024-09-01 09:51 | CT ---
EXAMINATION TYPE: CT brain bj wo con DATE OF EXAM: 09/01/2024 COMPARISON: 04/04/2024 CLINICAL INDICATION: Female, 84 years old with history of fall on thinners last night; [facility], Fall on t hinners last night TECHNIQUE: CT scan of the head and cervical spine are performed without contrast. CT DLP: [address] CTDI: mGy Automated exposure control for dose reduction was used. Findings: Head CT: The ventricles, basal cisterns and sulci over convexities are moderately to markedly distended with m oderate to marked atrophy. There is marked decreased density in the periventricular white matter cons istent with chronic ischemic white matter demyelination. There is no acute intra or extra-axial hemorrhage. There is no mass effect or shift of the midline st ructures. Posterior fossa including the brainstem, fourth ventricle and cerebellar pontine angles are grossly n ormal. The intraorbital contents appear normal and symmetric. Visualized paranasal sinuses are well aerated. CT cervical spine: Craniovertebral junction relationships and prevertebral soft tissues are normal. The cervical vertebral segments are normal in height and alignment and there is no fracture subluxati on. There is mild spondylosis and mild degenerative disease at C4-5 and C5-6 level. There is mild degeneration of the uncovertebral joints and facet joints in the mid to lower cervical spine. There is no significant bony encroachment of the cervical canal or neural foramina.. The paraspinal soft tissues unremarkable. IMPRESSION: 1. Head CT: No acute bleed or mass effect. Marked senescent changes as described above. 2. CT cervical spine: No acute trauma. Mild degenerative arthritis and degenerative disease as descri bed above. [facility], , 09/01/2024 9:48 AM
--- NOTE | 2024-09-01 09:58 | ED ---
General Adult HPI - General Chief complaint: Fall Stated complaint: fall Time Seen by Provider: 09/01/24 09:00 Source: patient Limitations: no limitations - History of Present Illness Initial comments: 84-year-old female presents to the emergency department after a fall. She resides at [facility]. It was reported that the patient fell last night after dinner. Patient is unaware of what time this was. She did hit her head and is on Plavix. She denies losing consciousness. She was able to get up and put herself back to bed. She denies any neck or back pain. She let the staff know this morning that she had a fall last night and they recommended that the patient be transferred to the hospital for evaluation. She denies headache, neck pain. No numbness, tingling or weakness in her extremities. No chest pain or difficulty breathing. Patient feels asymptomatic at this time. no other alleviating, precipitating or modifying - Related Data Home Medications Medication Instructions Recorded Confirmed Aspirin EC [Ecotrin Low Dose] 81 mg PO DAILY 04/16/21 10/26/23 Atorvastatin Calcium [Lipitor] 40 mg PO DAILY@199904/16/21 10/26/23 Clopidogrel [Plavix] 75 mg PO HS 04/16/21 10/26/23 Furosemide [Lasix] 20 mg PO DAILY 04/16/21 10/26/23 Isosorbide Mononitrate ER [Imdur] 30 mg PO DAILY 04/16/21 10/26/23 Potassium Chloride ER [K-Dur 20] 20 meq PO DAILY 04/16/21 10/26/23 Sertraline HCl [Zoloft] 50 mg PO DAILY 04/16/21 10/26/23 Acetaminophen [Tylenol 8 Hour] 650 mg PO BID 08/26/22 10/26/23 hydroCHLOROthiazide 12.5 mg PO DAILY 08/26/22 10/26/23 Calcium Carbonate 1,000 mg PO ACHS PRN 04/23/23 10/26/23 Levocetirizine Dihydrochloride 5 mg PO HS@199904/23/23 10/26/23 Loperamide [Imodium] 2 - 4 mg PO TID PRN MDD 8 mg 04/23/23 10/26/23 Meclizine [Antivert] 12.5 mg PO DAILY PRN 04/23/23 10/26/23 Metoprolol Tartrate [Lopressor] 12.5 mg PO BID 04/23/23 10/26/23 Pantoprazole [Protonix] 40 mg PO DAILY 04/23/23 10/26/23 Melatonin 3 mg PO HS 10/21/23 10/26/23 Previous Rx's Medication Instructions Recorded Ferrous Sulfate [Feosol] 325 mg PO DAILY 30 Days #30 tab 04/26/23 Allergies Allergy/AdvReac Type Severity Reaction Status Date / Time bee venom protein (honey bee) Allergy Rash/Hives Verified 09/01/24 09:01 Penicillins Allergy Rash/Hives Verified 09/01/24 09:01 vitamin b 12 Allergy Anaphylaxis Uncoded 09/01/24 09:01 Review of Systems ROS Statement: Those systems with pertinent positive or pertinent negative responses have been documented in the HPI. ROS Other: All systems not noted in ROS Statement are negative. Past Medical History Past Medical History: Heart Failure, CVA/TIA, GERD/Reflux, Hyperlipidemia, Hypertension Additional Past Medical History / Comment(s): weakness History of Any Multi-Drug Resistant Organisms: None Reported Past Surgical History: Pacemaker Past Anesthesia/Blood Transfusion Reactions: No Reported Reaction Additional Past Anesthesia/Blood Transfusion Reaction / Comment(s): PER MALAIKA STAFF Type of Cardiac Device: Unknown Device Placement Date:: UNK Past Psychological History: Depression Smoking Status: Former smoker - Past Family History Father Family Medical History: Cancer Brother(s) Additional Family Medical History / Comment(s): suicide General Exam Limitations: no limitations General appearance: alert, in no apparent distress Head exam: Present: normocephalic, other (Small scalp hematoma to the right occiput) Eye exam: Present: normal appearance, PERRL, EOMI. Absent: scleral icterus, conjunctival injection, periorbital swelling ENT exam: Present: normal exam, mucous membranes moist Neck exam: Present: normal inspection. Absent: tenderness, meningismus, lymphadenopathy Respiratory exam: Present: normal lung sounds bilaterally. Absent: respiratory distress, wheezes, rales, rhonchi, stridor Cardiovascular Exam: Present: regular rate, normal rhythm, normal heart sounds. Absent: systolic murmur, diastolic murmur, rubs, gallop, clicks GI/Abdominal exam: Present: soft, normal bowel sounds. Absent: distended, tenderness, guarding, rebound, rigid Extremities exam: Present: normal inspection, full ROM, normal capillary refill. Absent: tenderness, pedal edema, joint swelling, calf tenderness Back exam: Present: normal inspection Neurological exam: Present: alert, oriented X3, CN II-XII intact Psychiatric exam: Present: normal affect, normal mood Skin exam: Present: warm, dry, intact, normal color. Absent: rash Course Vital Signs 09/01/24 09/01/24 08:56 11:12 Temperature 97.9 F Pulse Rate 63 89 Respiratory 17 17 Rate Blood Pressure 123/62 136/70 O2 Sat by Pulse 97 97 Oximetry Medical Decision Making - Medical Decision Making Was pt. sent in by a medical professional or institution (, PA, FITTER'S ASSISTANT, urgent care, hospital, or long-term...) When possible be specific @ -[facility] Did you speak to anyone other than the patient for history (EMS, parent, family, police, friend...)? What history was obtained from this source @ -Spoke with EMS for history Did you review nursing and triage notes (agree or disagree)? Why? @ -I reviewed and agree with nursing and triage notes Were old charts reviewed (outside hosp., previous admission, EMS record, old EKG, old radiological studies, urgent care reports/EKG's, long-term records)? Report findings @ -No old charts were reviewed Differential Diagnosis (chest pain, altered mental status, abdominal pain women, abdominal pain men, vaginal bleeding, weakness, fever, dyspnea, syncope, headache, dizziness, GI bleed, back pain, seizure, CVA, palpatations, mental health, musculoskeletal)? @ -Subarachnoid hemorrhage, subdural hemorrhage, epidural hemorrhage EKG interpreted by me (3pts min.). @ -Not done X-rays interpreted by me (1pt min.). @ -None done CT interpreted by me (1pt min.). @ -Yes which demonstrates no acute process U/S interpreted by me (1pt. min.). @ -None done What testing was considered but not performed or refused? (CT, X-rays, U/S, labs)? Why? @ -None What meds were considered but not given or refused? Why? @ -None Did you discuss the management of the patient with other professionals (professionals i.e. , PA, FITTER'S ASSISTANT, lab, RT, psych nurse, social services, net wpf developer, teacher, motor equipment commanding officer, child welfare caseworker)? Give summary @ -No Was smoking cessation discussed for >3mins.? @ -No Was critical care preformed (if so, how long)? @ -No Were there social determinants of health that impacted care today? How? (Homelessness, low income, unemployed, alcoholism, drug addiction, transportation, low edu. Level, literacy, decrease access to med. care, intermediate, rehab)? @ -No Was there de-escalation of care discussed even if they declined (Discuss DNR or withdrawal of care, Hospice)? DNR status @ -No What co-morbidities impacted this encounter? (DM, HTN, Smoking, COPD, CAD, Cancer, CVA, ARF, Chemo, Hep., AIDS, mental health diagnosis, sleep apnea, morbid obesity)? @ -CVA on Plavix Was patient admitted / discharged? Hospital course, mention meds given and route, prescriptions, significant lab abnormalities, going to OR and other pertinent info. @ -Upon arrival patient seen and evaluated in bed 17. Thorough history and physical exam was performed. Patient sent for CT of her brain. Code coag is not activated as the patient is outside the 12-hour window. CT is negative for acute injury. Patient will return back to her extended care facility as she has no symptoms. Patient was agreeable to this Undiagnosed new problem with uncertain prognosis? @ -No Drug Therapy requiring intensive monitoring for toxicity (Heparin, Nitro, Insulin, Cardizem)? @ -No Were any procedures done? @ -No Diagnosis/symptom? @ -Acute fall, blunt head trauma, Plavix coagulopathy Acute, or Chronic, or Acute on Chronic? @ -Acute Uncomplicated (without systemic symptoms) or Complicated (systemic symptoms)? @ -Uncomplicated Side effects of treatment? @ -No Exacerbation, Progression, or Severe Exacerbation? @ -No Poses a threat to life or bodily function? How? (Chest pain, [place], [place], pneumonia, PE, COPD, DKA, ARF, appy, cholecystitis, CVA, Diverticulitis, Homicidal, Suicidal, threat to staff... and all critical care pts) @ -No Disposition Clinical Impression: Fall, Head injury Disposition: HOME SELF-CARE Condition: Stable Instructions (If sedation given, give patient instructions): Fall Prevention (ED) Additional Instructions: Your scan was negative. Continue taking your medications as they are instructed Is patient prescribed a controlled substance at d/c from ED?: No Referrals: Karin Marin DO [Primary Care Provider] - 1-2 days Time of Disposition: 09:57
[2024-09-01 11:13] VITALS: BP 136/70; PULSE 89
== END 2024-09-01 11:13 | disposition home or self-care (01) ==
LOC: EC 08:54
DX: S00.03XA Contusion of scalp, initial encounter (principal); Z86.73 Personal history of transient ischemic attack (TIA), and cerebral infarction without residual deficits; Z79.02 Long term (current) use of antithrombotics/antiplatelets; Z88.0 Allergy status to penicillin; Z91.030 Bee allergy status; Z88.8 Allergy status to other drugs, medicaments and biological substances; Z87.891 Personal history of nicotine dependence; W19.XXXA Unspecified fall, initial encounter
CPT/HCPCS: 70450; 72125; 99284

== ENCOUNTER 2024-10-16 02:01 | Emergency (ER) | payer MEDICARE, OTHER ==
[2024-10-16 02:07] VITALS: RESP 18
--- NOTE | 2024-10-16 02:27 | ED ---
General Adult HPI - General Chief complaint: Fall Stated complaint: Fall Time Seen by Provider: 10/16/24 02:06 Source: patient, RN notes reviewed, old records reviewed Mode of arrival: EMS Limitations: no limitations - History of Present Illness Initial comments: 84-year-old female presenting status post fall with head injury. No loss consciousness. Patient is on Plavix. She reports some minor pain in the left hip and thigh. She states she did hit the right side of her head. No neck pain. No chest pain. Patient states she was folding close at the time. Mechanical fall. - Related Data Home Medications Medication Instructions Recorded Confirmed Aspirin EC [Ecotrin Low Dose] 81 mg PO DAILY 04/16/21 10/26/23 Atorvastatin Calcium [Lipitor] 40 mg PO DAILY@199904/16/21 10/26/23 Clopidogrel [Plavix] 75 mg PO HS 04/16/21 10/26/23 Furosemide [Lasix] 20 mg PO DAILY 04/16/21 10/26/23 Isosorbide Mononitrate ER [Imdur] 30 mg PO DAILY 04/16/21 10/26/23 Potassium Chloride ER [K-Dur 20] 20 meq PO DAILY 04/16/21 10/26/23 Sertraline HCl [Zoloft] 50 mg PO DAILY 04/16/21 10/26/23 Acetaminophen [Tylenol 8 Hour] 650 mg PO BID 08/26/22 10/26/23 hydroCHLOROthiazide 12.5 mg PO DAILY 08/26/22 10/26/23 Calcium Carbonate 1,000 mg PO ACHS PRN 04/23/23 10/26/23 Levocetirizine Dihydrochloride 5 mg PO HS@199904/23/23 10/26/23 Loperamide [Imodium] 2 - 4 mg PO TID PRN MDD 8 mg 04/23/23 10/26/23 Meclizine [Antivert] 12.5 mg PO DAILY PRN 04/23/23 10/26/23 Metoprolol Tartrate [Lopressor] 12.5 mg PO BID 04/23/23 10/26/23 Pantoprazole [Protonix] 40 mg PO DAILY 04/23/23 10/26/23 Melatonin 3 mg PO HS 10/21/23 10/26/23 Previous Rx's Medication Instructions Recorded Ferrous Sulfate [Feosol] 325 mg PO DAILY 30 Days #30 tab 04/26/23 Allergies Allergy/AdvReac Type Severity Reaction Status Date / Time bee venom protein (honey bee) Allergy Rash/Hives Verified 09/01/24 09:01 Penicillins Allergy Rash/Hives Verified 09/01/24 09:01 vitamin b 12 Allergy Anaphylaxis Uncoded 09/01/24 09:01 Review of Systems ROS Statement: Those systems with pertinent positive or pertinent negative responses have been documented in the HPI. ROS Other: All systems not noted in ROS Statement are negative. Past Medical History Past Medical History: Heart Failure, CVA/TIA, GERD/Reflux, Hyperlipidemia, Hypertension Additional Past Medical History / Comment(s): weakness History of Any Multi-Drug Resistant Organisms: None Reported Past Surgical History: Pacemaker Past Anesthesia/Blood Transfusion Reactions: No Reported Reaction Additional Past Anesthesia/Blood Transfusion Reaction / Comment(s): PER [facility]KA STAFF Type of Cardiac Device: Unknown Device Placement Date:: UNK Past Psychological History: Depression Smoking Status: Former smoker - Past Family History Father Family Medical History: Cancer Brother(s) Additional Family Medical History / Comment(s): suicide General Exam Limitations: no limitations General appearance: alert, in no apparent distress Head exam: Present: atraumatic, normocephalic Eye exam: Present: normal appearance, PERRL ENT exam: Present: normal exam Neck exam: Present: normal inspection. Absent: tenderness, meningismus Respiratory exam: Present: normal lung sounds bilaterally. Absent: respiratory distress, wheezes Cardiovascular Exam: Present: regular rate, normal rhythm GI/Abdominal exam: Present: soft. Absent: distended, tenderness Extremities exam: Present: normal inspection, full ROM, normal capillary refill Neurological exam: Present: alert, oriented X3 Psychiatric exam: Present: normal affect, normal mood Skin exam: Present: warm, dry, intact Course Vital Signs 10/16/24 02:02 Temperature 98 F Pulse Rate 76 Respiratory 18 Rate Blood Pressure 144/90 Medical Decision Making - Medical Decision Making Was pt. sent in by a medical professional or institution (, PA, MARKETING TRAFFIC MANAGER, urgent care, hospital, or [facility]...) When possible be specific @ -[facility] with [facility] Did you speak to anyone other than the patient for history (EMS, parent, family, police, friend...)? What history was obtained from this source @ -No Did you review nursing and triage notes (agree or disagree)? Why? @ -I reviewed and agree with nursing and triage notes Were old charts reviewed (outside hosp., previous admission, EMS record, old EKG, old radiological studies, urgent care reports/EKG's, [facility] records)? Report findings @ -No old charts were reviewed Differential Diagnosis: Orthopedic injury from fall, intracranial hemorrhage, cervical fracture or subluxation. EKG interpreted by me (3pts min.). @ -As above X-rays interpreted by me (1pt min.). @ -X-ray of the left hip and femur is negative for displaced fracture or dislocation CT interpreted by me (1pt min.). @ -CT brain and C-spine negative for intracranial hemorrhage or mass effect, no cervical fracture or subluxation U/S interpreted by me (1pt. min.). @ -None done What testing was considered but not performed or refused? (CT, X-rays, U/S, labs)? Why? @ -None What meds were considered but not given or refused? Why? @ -None Did you discuss the management of the patient with other professionals (professionals i.e. , PA, MARKETING TRAFFIC MANAGER, lab, RT, psych nurse, social scientist, department traffic freight router, teacher, booking police officer, shoe parts caser)? Give summary @ -No Was smoking cessation discussed for >3mins.? @ -No Was critical care preformed (if so, how long)? @ -No Were there social determinants of health that impacted care today? How? (Homelessness, low income, unemployed, alcoholism, drug addiction, transportation, low edu. Level, literacy, decrease access to med. care, senior living, rehab)? @ -No Was there de-escalation of care discussed even if they declined (Discuss DNR or withdrawal of care, Hospice)? DNR status @ -No What co-morbidities impacted this encounter? (DM, HTN, Smoking, COPD, CAD, Cancer, CVA, ARF, Chemo, Hep., AIDS, mental health diagnosis, sleep apnea, morbid obesity)? @ -None Was patient admitted / discharged? Hospital course, mention meds given and route, prescriptions, significant lab abnormalities, going to OR and other pertinent info. @ -84-year-old female with fall at the [facility], head injury without loss consciousness. Patient is on Plavix. She has a code coag. Head CT is negative for intracranial hemorrhage or mass effect, x-rays of the left hip and femur are negative for displaced fracture. Patient stable for discharge, return to the [facility]. Undiagnosed new problem with uncertain prognosis? @ -No Drug Therapy requiring intensive monitoring for toxicity (Heparin, Nitro, Insulin, Cardizem)? @ -No Were any procedures done? @ -No Diagnosis/symptom? @ -[Fall, concussion Acute, or Chronic, or Acute on Chronic? @ -acute Uncomplicated (without systemic symptoms) or Complicated (systemic symptoms)? @ -Default Side effects of treatment? @ -No Exacerbation, Progression, or Severe Exacerbation? @ -No Poses a threat to life or bodily function? How? (Chest pain, [place], [place], pneumonia, PE, COPD, DKA, ARF, appy, cholecystitis, CVA, Diverticulitis, Homicidal, Suicidal, threat to staff... and all critical care pts) @ -No Disposition Clinical Impression: Fall, Concussion Disposition: HOME SELF-CARE Condition: Fair Instructions (If sedation given, give patient instructions): Fall Prevention for Older Adults (ED), Concussion (ED) Is patient prescribed a controlled substance at d/c from ED?: No Referrals: Karin Marin DO [Primary Care Provider] - 1-2 days Time of Disposition: 02:46
--- NOTE | 2024-10-16 02:30 | CT ---
EXAM: CT Head Without Intravenous Contrast CLINICAL HISTORY: ITS.REASON CT Reason: fall on eliquis TECHNIQUE: Axial computed tomography images of the head/brain without intravenous contrast. CTDI is 45.2 mGy and DLP is 1100 mGy-cm. This CT exam was performed using one or more of the following dose reduction techniques: automated exposure control, adjustment of the mA and/or kV according to patient size, and/or use of iterative reconstruction technique. COMPARISON: No relevant prior studies available. FINDINGS: Brain: Age-related cerebral volume loss. Periventricular and subcortical white matter hypoattenuation, consistent with chronic microangiopathy. No acute intracranial hemorrhage. No midline shift or mass effect. Ventricles: Unremarkable. No ventriculomegaly. Bones/joints: Unremarkable. No acute fracture. Soft tissues: Unremarkable. Sinuses: Unremarkable as visualized. No acute sinusitis. Mastoid air cells: Unremarkable as visualized. No mastoid effusion. IMPRESSION: No acute intracranial hemorrhage. No midline shift or mass effect. EXAM: CT Cervical Spine Without Intravenous Contrast CLINICAL HISTORY: ITS.REASON CT Reason: fall on eliquis TECHNIQUE: Axial computed tomography images of the cervical spine without intravenous contrast. CTDI is 10.6 mGy and DLP is 311 mGy-cm. This CT exam was performed using one or more of the following dose reduction techniques: automated exposure control, adjustment of the mA and/or kV according to patient size, and/or use of iterative reconstruction technique. COMPARISON: No relevant prior studies available. FINDINGS: The vertebral body heights are maintained. The craniocervical junction is intact. The atlanto-dens interval is maintained. The dens is intact. There is no spondylolisthesis. Multilevel cervical spondylosis and degenerative disc disease. Straightening of the cervical lordosis. The unenhanced neck soft tissues are grossly unremarkable. The visualized lung apices are grossly clear. IMPRESSION: No acute fracture or subluxation of the cervical spine.
--- NOTE | 2024-10-16 04:26 | XR ---
EXAM: XR Pelvis, 1 or 2 Views CLINICAL HISTORY: ITS.REASON XR Reason: fall/pain TECHNIQUE: Frontal view of the pelvis. COMPARISON: No relevant prior studies available. FINDINGS: Bones/joints: LEFT hip ORIF. No periprosthetic fracture. Diffuse osseous demineralization. No dislocation. No RIGHT hip fracture. Soft tissues: Unremarkable. IMPRESSION: 1. No RIGHT hip fracture. 2. LEFT hip ORIF. No periprosthetic fracture.
--- NOTE | 2024-10-16 04:47 | XR ---
EXAM: XR Left Femur, 2 Views CLINICAL HISTORY: ITS.REASON XR Reason: fall/pain TECHNIQUE: Frontal and lateral views of the left femur. COMPARISON: No relevant prior studies available. FINDINGS: Bones/joints: Diffuse osseous demineralization. LEFT hip ORIF. No periprosthetic fracture. No acute fracture or subluxation. Soft tissues: Unremarkable. IMPRESSION: No acute fracture or subluxation.
[2024-10-16 08:29] VITALS: BP 113/44; PULSE 60; TEMP 98
== END 2024-10-16 08:29 | disposition home or self-care (01) ==
LOC: EC 02:01
DX: S06.0X0A Concussion without loss of consciousness, initial encounter (principal); M25.552 Pain in left hip; Z87.891 Personal history of nicotine dependence; Z88.0 Allergy status to penicillin; Z91.030 Bee allergy status; Z88.8 Allergy status to other drugs, medicaments and biological substances; W19.XXXA Unspecified fall, initial encounter
CPT/HCPCS: 70450; 72125; 73502; 99284